=== PATIENT | male | born 1965 | race American Indian/Alaskan Native ===

== ENCOUNTER 2025-04-19 10:29 | Outpatient (AMB) | payer BC, SELFPAY ==
--- NOTE | 2025-04-19 10:36 | A.OFFVIS_ITS ---
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 The patient is a 60-year-old gentleman with a positive methacholine challenge consistent with asthma also with significant allergies here for evaluation. The patient states that he started developing worsening respiratory symptoms the last few years. He did have a methacholine challenge that was positive for hyperreactive airways in a diagnosis of asthma. 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 He did have allergy testing demonstrating significant allergens. The patient also is currently being seen by an leather roller and is currently on allergy shots. The patient also was started on biologics including Nucala. The Nucala was not effective and therefore the patient recently was placed on Dupixent. On further questioning he does have significant nasal congestion. Has a hard time breathing through his nose. He has been using fluticasone nasal spray more recently got a new nasal spray. It does affect his sleep. The patient does have significant snoring does have an elevated Mclaughlin score of 11/24. He was already diagnosed with sleep apnea in the past but could not tolerate PAP therapy therefore he is no longer using it. The patient also had a CT scan of the chest which I personally reviewed done at [facility] in 2022. The patient had multiple pulmonary nodules but 1 nodules 5 mm in size in the right hemithorax. Has not been visualized sense. The patient needs a repeat CAT scan to assess this nodule at this time. If the nodule has not changed in that period of time 2 years then no additional imaging studies at least serially are warranted. Will go ahead and maximize his respiratory therapy by switching over to Breztri from Advair. The patient will continue with the biologic therapy and also immunotherapy. He will continue his allergy therapy. We also talked about nasal rinsing to try to help him with the nasal passages while he uses the fluticasone nasal spray. The patient will follow-up in 2-3 months. If he has any issues prior to this he will call for an earlier evaluation. [facility] Medical History (Updated 04/19/25 @ 12:55 by Praveen Burch MD) Dyspnea Chronic allergic rhinitis Asthma Pulmonary nodule Social History (Updated 04/19/25 @ 10:40 by Faustina Ambrose CMA) Patient Tobacco Use Status: Never used Tobacco Review of Systems Const Reports daytime sleepiness, Reports snoring and Reports stops breathing during sleep Eyes Reports no additional complaints ENT Reports nasal congestion, Reports nasal discharge and Reports nasal obstruction Card Reports dyspnea on exertion Resp Reports cough, Reports dyspnea on exertion, Reports snoring and Reports wheezing GI Reports no additional complaints Musc Reports no additional complaints Skin/Breast Reports rash Neuro Reports no additional complaints Endo Reports no additional complaints Yazan/Lymph Reports no additional complaints Aller/Immun Reports wheezing Physical Exam Vital Signs: Last Vital Signs Pulse 94 04/19/25 10:38 BP 130/90 H 04/19/25 10:38 Pulse Ox 96 04/19/25 10:38 Oxygen Delivery Method Room Air 04/19/25 10:38 BMI result Body Mass Index 34.9 Const General: comfortable HEENT General nose exam: Abnormal mucous membranes and turbinates present boggy Neck Neck: Yes supple Chest Chest palpation & inspection: normal inspection of the chest Resp Effort & Inspection: normal respiratory effort Auscultation: diminished lung sounds Cardio Heart sounds: S1 normal heart sound present and S2 normal heart sound present GI Palpation (GI): Soft to palpation Skin General skin exam: no rashes or lesions noted Extrem General: Yes no clubbing, cyanosis or edema Assessment & Plan Assessment & Plan (1) Asthma: Code(s): J45.909 - Unspecified asthma, uncomplicated Category: Medical Qualifiers: Asthma severity: moderate Asthma persistence: persistent Asthma complication type: uncomplicated Qualified Code(s): J45.40 - Moderate persistent asthma, uncomplicated (2) Pulmonary nodule: Code(s): R91.1 - Solitary pulmonary nodule Category: Medical (3) Chronic allergic rhinitis: Code(s): J30.9 - Allergic rhinitis, unspecified Category: Medical (4) Dyspnea: Code(s): R06.00 - Dyspnea, unspecified Category: Medical Qualifiers: Dyspnea type: dyspnea on exertion Qualified Code(s): R06.09 - Other forms of dyspnea Plan Stop Advair HFA Start Breztri BID BANDAR as needed continue Dupixent nasal pray start Nasal rinsing with distilled water and packages CT chest should wear a mask (N95) when working with organic and inorganic dust F/U 2-3 months Orders: Orders CT chest wo IV con Today R91.1 - Solitary pulmonary nodule Medications: New jxptzrvmbf-tcxcvnhe-mafljuylho 160-9-4.8 mcg/actuation (Breztri Aerosphere) 2 inhalations inhalation BID 10.7 grams 0RF Coding Level of Care Code New Pt Level 4 (28223) Diagnoses Moderate persistent asthma without complication J45.40 Asthma severity: moderate Asthma persistence: persistent Asthma complication type: uncomplicated Pulmonary nodule R91.1 Chronic allergic rhinitis J30.9 Dyspnea on exertion R06.09 Dyspnea type: dyspnea on exertion Time Spent (min) 40
[2025-04-19 10:38] VITALS: BP 130/90; PULSE 94; O2SAT 96; BMI 34.9
--- OUTSIDE RECORDS SUMMARY | 2025-04-19 11:39 | XMS_ITS | Encounter Summary ---
Author Organization [facility] Address [address] [place] [address] Care Team Providers Care Plunger Scoop Operator Name Role Phone Joanie Conley MD Primary Care Provider Unavailab Pritesh Fang MD Unavailable Encounter Details Date Type Department Care Team Description 12/02/2023 Hospital Medical Records [address] [place] [address] Andre Vasques MD [address] [place] [address] [address] [place] [address] Social History Tobacco Use Types Packs/Day Years Used Date Smoking Tobacco: Never Smokeless Tobacco: Never Alcohol Use Standard Drinks/Week Comments Yes 0 (1 standard drink = 0.6 oz pur e alcohol) social drinker Sex Assigned at Date Recorded Not on file Job Start Date Occupation Industry Not on file Not on file Not on file documented as of this encounter Plan of Treatment Not on file documented as of this encounter Visit Diagnoses Not on filedocumented in this encounter Care Teams Plunger Scoop Operator Relationship Specialty Start Date End Date Joanie Conley MD PCP - General Internal Medicine 08/24/21 Pritesh Benton MD Catalytic Converter Operator Helper Cardiovascular Disease 09/26/21 documented as of this encounter
--- OUTSIDE RECORDS SUMMARY | 2025-04-19 11:39 | XMS_ITS | Clinical Summary ---
Author Organization [facility] Address [address] [place] [address] Phone Care Team Providers Care Dress Finisher Name Role Phone Joanie Conley MD Primary Care Provider [phone] Allergies No known active allergies Medications chlorthalidone (HYGROTON) 25 mg tablet Daily 0 Active mometasone (NASONEX) 50 mcg/actuation nasal spray 8 Active montelukast (SINGULAIR) 10 mg tablet Take 1 tablet (10 mg total) by mouth at bedtime. Active atorvastatin (LIPITOR) 80 mg tablet Daily Active lansoprazole (PREVACID) [address] capsule Take 1 capsule (30 mg total) by mouth 1 (one) time each day. Do not crush or chew. 90 each 3 5 10/31/19 26 Active Nucala 100 mg/mL injection syringe Inject 1 mL (100 mg total) under the skin 1 (one) time. 5 Active Flonase Allergy Relief 50 mcg/actuation nasal spray Administer 1 spray into each nostril 1 (one) time each day. Active albuterol HFA (PROAIR HFA ; PROVENTIL HFA ; VENTOLIN HFA) 90 mcg/actuation inhaler Inhale 2 puffs by mouth every 4 (four) hours. 5 Active acetaminophen (TYLENOL) 500 mg tablet Take 2 tablets (1,000 mg total) by mouth every 8 (eight) hours. 30 tablet 5 Active oxyCODONE (ROXICODONE) 5 mg immediate release tablet Take 1 tablet (5 mg total) by mouth every 6 (six) hours if needed for severe pain. Max Daily Amount: 20 mg 6 tablet 5 Active docusate sodium (COLACE) 100 mg capsule Take 1 capsule (100 mg total) by mouth 1 (one) time each day. 7 each 5 Active Active Problems Problem Noted Date Diagnosed Date History of cholecystectomy 03/09/2025 Gastric lesion 03/09/2025 History of Jayne fundoplication 11/18/2024 Epigastric pain 11/18/2024 GERD (gastroesophageal reflux disease) 0 Overview (06/10/2024): 2014 Jayne Fundoplication Hypertension 05/12/2020 Nephrolithiasis 05/12/2020 Odynophagia 05/12/2020 Overview (06/10/2024): 2014 Jayne Fundoplication FARHAN on CPAP 05/12/2020 Total knee replacement status 05/12/2020 Overview (06/10/2024): right Post-nasal drip 01/14/2018 Asthma 07/05/2017 Dyspnea on exertion 07/05/2017 Hyperlipidemia 05/13/2017 Diverticulosis of intestine 10/05/2016 Internal hemorrhoids 10/05/2016 Hypothyroidism 08/25/2015 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 Insomnia 09/10/2014 Resolved Problems Problem Noted Date Diagnosed Date Resolved Date Calculus of gallbladder with out cholecystitis without obstruction 02/10/2025 03/02/2025 Encounters Date Type Department Care Team Description 03/15/2025 11:00 AM EDT Office Visit General Surgery - [place] 175 [facility] [address] [place] [address] Zain Walsh MD History of laparoscopic cholecystectomy (Primary Dx); Gastric mass 03/09/2025 10:20 AM EDT Office Visit Gastroenterology - [address] 175 [facility] [address] [place] [address] Andre Vasques MD Epigastric pain (Primary Dx); History of Jayne fundoplication; Gastric lesion 03/02/2025 7:30 AM EDT - 03/02/2025 9:30 AM EDT Surgery [facility] OR [address] [place] [phone] Zain Walsh MD LAPAROSCOPIC CHOLECYSTECTOMY [84122 (CPT )] 03/02/2025 7:29 AM EDT Anesthesia Event [facility] OR [address] [place] [phone] Edy Carmen MD Couture, Alison, CRNA 03/02/2025 5:55 AM EDT - 03/02/2025 12:10 PM EDT Hospital Encounter [facility] OR [address] [place] [phone] Zain Walsh MD Calculus of gallbladder without cholecystitis without obstruction Discharge Disposition: Home or Self Care 02/11/2025 Telephone General Surgery - [place] [address] [phone] Zain Walsh MD Prior Authorization (03/02/25 Dr. Zain Walsh) 02/10/2025 10:15 AM EDT Consult General Surgery [facility] [address] [phone] Zain Walsh MD Calculus of gallbladder without cholecystitis without obstruction (Primary Dx) from Last 3 Months Immunizations Name Administration Dates Next Due Influenza trivalent, 0.5mL, preservative free (Fluarix; FluLaval; Fluzone) ages 6mo and older (Afluria) 3 years and older 10/18/2016 Pneumococcal polysaccharide 23 valent (Pneumovax 23) 2yo and older 10/18/2016 Tdap Tetanus diptheria acell ular pertussis (Boostrix; Adacel) 7yo and older 11/14/2017 Surgical History Surgery Date Site/Laterality Comments OTHER SURGICAL HISTORY 04/07/2015 PROCEDURE: DE LAPS SURG ESOPG/GSTR FUNDOPLASTY; COMMENT: jayne fundoplication HERNIA REPAIR 01/21/2018 Left PROCEDURE: HISTORICAL HERNIA REPAIR/ING; COMMENT: with mesh WRIST MASS EXCISION 2015 Right PROCEDURE: DE EXCISION GANGLION WRIST DORSAL/VOLAR PRIMARY CARPAL TUNNEL RELEASE 2007 Bilateral PROCEDURE: HISTORICAL CARPAL TUNNEL REL COLONOSCOPY 09/18/2016 PROCEDURE: HISTORICAL COLONOSCOPY; COMMENT: Internal hemorrhoids, diverticulosis, Repeat 10 yrs TOTAL KNEE ARTHROPLASTY Right PROCEDURE: HISTORICAL TOTAL KNEE REPLACE UPPER GASTROINTESTINAL ENDOSCOPY 01/27/2016 PROCEDURE: DE UPPER GI ENDOSCOPY PERFORMED; COMMENT: H pylori, chronic gastritis LIPOMA RESECTION 09/18/2021 Right PROCEDURE: SKIN TISSUE EXCISION(LIPOMA); COMMENT: excision right forehead lipoma - Dr. Zain Walsh CHOLECYSTECTOMY Medical History Medical History Date Comments Odynophagia 05/12/2020 DX:Odynophagia; COMMENT: 2014 Jayne Fundoplication GERD (gastroesophageal reflux disease) 05/12/2020 DX:GERD (gastroesophageal reflux disease); COMMENT: 2014 Jayne Fundoplication FARHAN on CPAP 05/12/2020 DX:FARHAN on CPAP Nephrolithiasis 05/12/2020 DX:Nephrolithias is Hypertension 05/12/2020 DX:Hypertension Total knee replacement status 05/12/2020 DX :Total knee replacement status; COMMENT: right History of Helicobacter pylo ri infection 07/03/2017 DX:History of Helicobacter p ylori infection; COMMENT: 2015 Asthma 07/05/2017 DX:Asthma Diverticulosis of intestine 10/05/2016 DX:D iverticulosis of intestine Hyperlipidemia 05/13/2017 DX:Hyperlipidemi a Insomnia 09/10/2014 DX:Insomnia Internal hemorrhoids 10/05/2016 DX:Internal hemorrhoids 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 DX:Keloid scar Post-nasal drip 01/14/2018 DX:Post-nasal dr ip Hypothyroidism 08/25/2015 DX:Hypothyroidis m Family History Medical History Relation Name Comments Heart attack Father Heart attack Mother Relation Name Status Comments Father Mother Social History Tobacco Use Types Packs/Day Years Used Date Smoking Tobacco: Never Smokeless Tobacco: Never Alcohol Use Standard Drinks/Week Comments Yes 0 (1 standard drink = 0.6 oz pur e alcohol) Interpersonal Safety Answer Date Record ed Physical Abuse 03/02/2025 Verbal Abuse 03/02/2025 Sex and Gender Information Value Date Recorded Sex Assigned at Male 11/18/2024 11:53 AM EDT Legal Sex Male 8:25 AM EST Gender Identity Male 11/18/2024 11:53 AM EDT Sexual Orientation Straight 11/18/2024 11 :53 AM EDT Obstetrics History Last Filed Vital Signs Vital Sign Reading Time Taken Comments Blood Pressure 142/88 03/15/2025 10:31 AM EDT Pulse 89 03/15/2025 10:31 AM EDT Temperature 36.6 C (97.8 F) 03/15/2025 10:31 AM EDT Respiratory Rate 18 03/02/2025 11:26 AM EDT Oxygen Saturation 94% 03/02/2025 11:26 AM EDT Inhaled Oxygen Concentration - - Weight 101 kg (221 lb 12.8 oz) 03/15/2025 10:31 AM EDT Height 170.2 cm (5' 7 ) 03/15/2025 10:31 AM EDT Body Mass Index 34.74 03/15/2025 10:31 AM EDT Plan of Treatment Upcoming Encounters Date Type Department Care Team (Late st Contact Info) Description 06/03/2025 9:30 AM EDT Appointment [facility] Endoscopy [address] [place] [phone] Andre Vasques MD 175 [facility] [address] [place] [address] 06/14/2025 10:30 AM EDT Office Visit General Surgery - [place] 175 [facility] [address] [place] [phone] Zain Walsh MD 175 [facility] [address] [place] [address] Health Maintenance Due Date Last Done Comments Zoster Vaccines (1 of 2) 2015 Pneumococcal Vaccine: 50+ Years (2 of 2 - PCV) 10/18/2017 10/18/2016 HIV Screening 08/04/2022 Hepatitis C Screening 08/04/2022 Hypertension/CHF/CAD Annual BMP Blood Test 08/04/2022 09/12/2018 Social Influencers of Health Screening 08/04/2022 Cholesterol Screening (Lipid Panel) 05/20/2023 05/20/2018 COVID-19 Vaccine (3 - 2023-2 5 season) 2024 02/15/2021, 01/25/2021 Depression Screening 08/26/2024 RSV Immunization Adult Patients (1 - Risk 60-74 years 1-dose series) 2025 Influenza Vaccine (#1) 2025 9, 10/18/2016 DTaP,Tdap,and Td Vaccines (3 - Td or Tdap) 03/06/2031 03/06/2021, 11/14/2017 Colorectal Cancer Screening: Colonoscopy 10/21/2034 10/21/2024, 09/28/2016 HIB Vaccines Aged Out No longer eligi ble based on patient's age to complete this topic HPV Vaccines Aged Out No longer eligi ble based on patient's age to complete this topic Hepatitis A Vaccines Aged Out No long er eligible based on patient's age to complete this topic Hepatitis B Vaccines Aged Out No long er eligible based on patient's age to complete this topic IPV Vaccines Aged Out No longer eligi ble based on patient's age to complete this topic MMR Vaccines Aged Out No longer eligi ble based on patient's age to complete this topic Meningococcal ACWY Vaccine Aged Out N o longer eligible based on patient's age to complete this topic Meningococcal B Vaccine Aged Out No l onger eligible based on patient's age to complete this topic RSV Immunization Patients Under 20 months Aged Out No longer eligible b ased on patient's age to complete this topic Varicella Vaccines Aged Out No longer eligible based on patient's age to complete this topic Procedures Procedure Name Priority Date/Time Associated Diagnosis Comments TISSUE EXAM Routine 03/02/2025 8:08 AM EDT Calculus of gallbladder without cholecystitis without obstruction TH AN ENDOTRACHEAL(NO CHARGE) Routine 03/02/2025 7:45 AM EDT DE LAPAROSCOPY SURGICAL CHOLECYSTECTOMY 03/02/2025 7:28 AM EDT Calculus of gallbladder without cholecystitis without obstruction Case Notes PA ASSIST Special Needs Laparoscopic Cholecystectomy -- Asking 90 Minutes for this caseTIME CHANGE VIA PHONE Brandt/ADAM WILLINGHAM 03/01 PROCEDURAL ECG Routine 02/23/2025 9:21 AM EDT Calculus of gallbladder without cholecystitis without obstruction EXTERNAL COLONOSCOPY REPORT Routine 10/21/2024 2:48 PM EST ANNUAL BMP BLOOD TEST Routine 09/12/2018 LIPID PANEL Routine 05/20/2018 from Last 3 Months or Most Recently Relevant to Health Maintenance Results * Tissue exam (03/02/2025 8:08 AM EDT) Final Diagnosis Gallbladder, cholecystectomy: - Chronic cholecystitis. - Cholelithiasis. 03/04/2025 1:32 PM EDT [facility] Gross Description A. Gallbladder, : Labeled gallbladder . Received in formalin is a 6.6 cm in length intact curry gallbladder, including a clipped segment of the cystic duct. The duct has a diameter of 0.6 cm at the margin. A periductal lymph node is absent. The serosa is smooth with an attached layer of adipose and the adventitia is cauterized. The maximal gallbladder circumference is 5.5 cm. The lumen contains brown-green viscid bile and yellow calculi up to 1.5 cm. The mucosa is velvety and yellow-stippled. The wall (muscularis) thickness averages less than 0.1 cm. The serosa is inked marlen and the adventitia is inked green. The duct margin is inked red. Insurance Associate sections are submitted in one cassette including gallbladder (fundus, body and neck), duct margin (inked red), and cross-section adjacent to duct margin (black), five pieces. LAURO/TSRavi 03/04/2025 1:32 PM EDT [facility] Disclaimer Unless otherwise specified, all tissue is 10% NB formalin fixed and paraffin embedded. 03/04/2025 1:32 PM EDT [facility] Tissue Gallbladder structure / Unknown 03/02/2025 8:08 AM EDT 03/02/2025 9:56 AM EDT us Zain Walsh MD LAB PATHOLOGY ORDERABLES Final Result [facility] [address] [place] [address], * TH AN ENDOTRACHEAL(NO CHARGE) (03/02/2025 7:45 AM EDT) Narrative Couture, Jackie, DISABILITY REPRESENTATIVE - 03/02/2025 7:45 AM EDT Jackie Caldwell CRNA 03/02/2025 7:45 AM General Information and Staff Patient location during procedure: OR Resident/DISABILITY REPRESENTATIVE: Jackie Caldwell CRNA Performed: resident/DISABILITY REPRESENTATIVE/CAA Performed by: Jackie Caldwell CRNA Authorized by: Edy Carmen MD Intubation Airway not difficult Urgency: elective Final Airway Details Successful airway: ETT Cuffed: yes Successful intubation technique: direct laryngoscopy Facilitating devices/methods: intubating stylet Blade: Eugenio Blade size: #3 ETT size (mm): 7.5 Cormack-Lehane Classification: grade I - full view of glottis Placement verified by: chest auscultation and capnometry Measured from: lips ETT to lips (cm): 23 Number of attempts at approach: 1Final airway type: endotracheal airway Indications and Patient Condition Indications for airway management: anesthesia and airway protection Spontaneous ventilation: present Sedation level: Yes Preoxygenated: yes Soft Tissue Damage: No Dentition Unchanged: Yes Patient position: sniffing MILS maintained throughout Mask difficulty assessment: 1 - vent by mask us Edy Carmen MD ANESTHESIA ORDERABLES Final Re sult * ECG 12 lead - Procedural (No Charge) (02/23/2025 9:21 AM EDT) Ventricular Rate ECG 84 BPM GEMUSE Atrial Rate 84 BPM GEMUSE P-R Interval 144 ms GEMUSE QRS Duration 92 ms GEMUSE Q-T Interval 390 ms GEMUSE QTc 460 ms GEMUSE P Wave Sherman 71 degrees GEMUSE R Sherman -12 degrees GEMUSE T Sherman 69 degrees GEMUSE ECG Interpretation Normal sinus rhythm Nonspecific T wave abnormality Abnormal ECG When compared with ECG of 12-SEP-2018 13:19, Nonspecific T wave abnormality now evident in Lateral leads Confirmed by MD Andrea, Crescent ([id number]) on 02/23/2025 5:09:36 PM GEMUSE 02/23/2025 9:21 AM EDT 02/23/2025 5:09 PM EDT us Zain Walsh MD ECG ORDERABLES Final Result [facility] * External Colonoscopy Report (10/21/2024 2:48 PM EST) Anatomical Region Laterality Modality Endoscopy Historical Provider GI~PROCEDURE ORDERABLES F inal Result * Annual BMP Blood Test (09/12/2018) Annual BMP Blood Test abstracted Historical Provider HEALTH MAINTENANCE Final Result * (ABNORMAL) Lipid panel (05/20/2018) LDL/HDL Ratio 4 0 - 4 Triglycerides 131 0 - 150 mg/dL Cholesterol 192 0 - 200 mg/dL HDL 49 >=40 mg/dL LDL Cholesterol 117(A) 0 - 100 mg/dL Blood Venous blood specimen / Unknown Historical Provider LAB BLOOD ORDERABLES Valerie l Result from Last 3 Months or Most Recently Relevant to Health Maintenance Insurance [facility] MEDICAID - [place] Advance Directives * Full Code - Default (Latest Code Status on File) Date Activated Date Inactivated Comments 03/02/2025 6:11 AM 03/02/2025 2:15 PM This is order is used when code status has not been discussed with the patient, or code status is otherwise unknown/unconfirmed To update the patient's code status, place a code status order. Do not modify or discontinue any currently active code status orders. Care Teams Dress Finisher Relationship Specialty Start Date End Date Joanie Conley MD [address] [place] [phone] PCP - General Internal Medicine 08/24/21
== END 2025-04-19 11:10 | disposition home or self-care (01) ==
LOC: HO.HPS 10:31
PROVIDERS: PCP Internal Medicine; Visit Provider Hospitalist
DX: J45.40 Moderate persistent asthma, uncomplicated (principal); R91.1 Solitary pulmonary nodule; J30.9 Allergic rhinitis, unspecified; R06.09 Other forms of dyspnea
CPT/HCPCS: 99204

== ENCOUNTER 2025-06-05 07:49 | Outpatient (REF) | payer BC, SELFPAY ==
--- OUTSIDE RECORDS SUMMARY | 2025-06-03 08:22 | XMS_ITS | Encounter Summary ---
Author Organization [facility] Address [address] [place] [address] Care Team Providers Care Plant Cytologist Name Role Phone Joanie Conley MD Primary Care Provider [phone] Reason for Referral * Hospital - Outpatient (Routine) - Authorized Specialty Diagnoses / Procedures Referred By Ashley garcia Referred To Contact Gastroenterology Diagnoses Epigastric pain Gastroesophageal reflux disease without esophagitis History of Jayne fundoplication Procedures EGD Anesthesia - MAC; [facility] ENDOSCOPY Andre Vasques MD [address] [address] Phone: tel: fax: [facility] Endoscopy [address] [place] [address] Phone: tel: Referral ID Status Reason Start Date Expiration Date V isits Requested Visits Authorized [id number] Authorized 03/09/2025 03/09/2026 1 1 Reason for Visit * Hospital - Outpatient (Routine) - Authorized Specialty Diagnoses / Procedures Referred By Ashley garcia Referred To Contact Gastroenterology Diagnoses Epigastric pain Gastroesophageal reflux disease without esophagitis History of Jayne fundoplication Procedures EGD Anesthesia - MAC; [facility] ENDOSCOPY Andre Vasques MD [address] [address] Phone: tel: fax: [facility] Endoscopy [address] [place] [address] Phone: tel: Referral ID Status Reason Start Date Expiration Date V isits Requested Visits Authorized [id number] Authorized 03/09/2025 03/09/2026 1 1 Encounter Details Date Type Department Care Team (Late st Contact Info) Description 06/03/2025 8:22 AM EDT Hospital Encounter [facility] Endoscopy [address] [place] [phone] Andre Vasques MD 175 [facility] [address] [address] [place] [address] Katya Helton CRNA [address] [place] [address] Epigastric pain; Gastroesophageal reflux disease without esophagitis; History of Jayne fundoplication Social History Tobacco Use Types Packs/Day Years Used Date Smoking Tobacco: Never Smokeless Tobacco: Never Alcohol Use Standard Drinks/Week Comments Yes 0 (1 standard drink = 0.6 oz pur e alcohol) Interpersonal Safety Answer Date Record ed Physical Abuse Unrecognized value 03/02/2025 Verbal Abuse Unrecognized value 03/02/2025 Sex and Gender Information Value Date Recorded Sex Assigned at Male 11/18/2024 11:53 AM EDT Legal Sex Male 8:25 AM EST Gender Identity Male 11/18/2024 11:53 AM EDT Sexual Orientation Straight 11/18/2024 11 :53 AM EDT documented as of this encounter Last Filed Vital Signs Vital Sign Reading Time Taken Comments Blood Pressure 140/95 06/03/2025 10:55 AM EDT Pulse 86 06/03/2025 10:55 AM EDT Temperature 36.2 C (97.1 F) 06/03/2025 9:27 AM EDT Respiratory Rate 16 06/03/2025 10:55 AM EDT Oxygen Saturation 98% 06/03/2025 10:55 AM EDT Inhaled Oxygen Concentration - - Weight 99.8 kg (220 lb) 06/03/2025 9:27 AM EDT Height 170.2 cm (5' 7 ) 06/03/2025 9:27 AM EDT Body Mass Index 34.46 06/03/2025 9:27 AM EDT documented in this encounter H&P Notes * Andre Vasques MD - 06/03/2025 9:30 AM EDT Pre-Op Diagnosis: EP GERD Proposed Procedure: EGD Performing Surgeon/MD/Endoscopist: Andre Vasques MD Medical/History: Medical History[1]Surgical History[2] Medications/Allergies: Prior to Admission medications Medication Sig Start Date End Date Taking? Authorizing Provider chlorthalidone (HYGROTON) 25 mg tablet Daily 04/26/20 Yes Historical Provider, acetaminophen (TYLENOL) 500 mg tablet Take 2 tablets (1,000 mg total) by mouth every 8 (eight) hours. 03/02/25 LISA Bourgeois albuterol HFA (PROAIR HFA ; PROVENTIL HFA ; VENTOLIN HFA) 90 mcg/actuation inhaler Inhale 2 puffs by mouth every 4 (four) hours. 10/30/24 Historical Provider, atorvastatin (LIPITOR) 80 mg tablet Daily Historical Provider, docusate sodium (COLACE) 100 mg capsule Take 1 capsule (100 mg total) by mouth 1 (one) time each day. Patient not taking: Reported on 06/03/2025 03/02/25 LISA Bourgeois Flonase Allergy Relief 50 mcg/actuation nasal spray Administer 1 spray into each nostril 1 (one) time each day. Historical Provider, lansoprazole (PREVACID) [address] capsule Take 1 capsule (30 mg total) by mouth 1 (one) time each day. Do not crush or chew. 10/30/24 10/30/25 Dionna Ovalle NP mometasone (NASONEX) 50 mcg/actuation nasal spray 01/13/18 Historical Provider, montelukast (SINGULAIR) 10 mg tablet Take 1 tablet (10 mg total) by mouth at bedtime. Historical Provider, Nucala 100 mg/mL injection syringe Inject 1 mL (100 mg total) under the skin 1 (one) time. 01/19/25 Historical Provider, oxyCODONE (ROXICODONE) 5 mg immediate release tablet Take 1 tablet (5 mg total) by mouth every 6 (six) hours if needed for severe pain. Max Daily Amount: 20 mg 03/02/25 LISA Bourgeois Patient Age:60 y.o. Vitals: Vitals: 06/03/25 0927 BP: (!) 157/86 Pulse: 82 Resp: 16 Temp: 36.2 ??C (97.1 ??F) SpO2: 98% Physical Exam: Mental Status: Clear HEENT: WNL Heart: WNL Lungs: WNL Abdomen: WNL Extremities: WNL Neuro: WNL Labs: Imaging: Diagnosis/Plan: EGD [1] Past Medical History: Diagnosis Date Asthma 07/05/2017 DX:Asthma Diverticulosis of intestine 10/05/2016 DX:Diverticulosis of intestine GERD (gastroesophageal reflux disease) 05/12/2020 DX:GERD (gastroesophageal reflux disease); COMMENT: 2014 Jayne Fundoplication History of Helicobacter pylori infection 07/03/2017 DX:History of Helicobacter pylori infection; COMMENT: 2015 Hyperlipidemia 05/13/2017 DX:Hyperlipidemia Hypertension 05/12/2020 DX:Hypertension Hypothyroidism 08/25/2015 DX:Hypothyroidism Insomnia 09/10/2014 DX:Insomnia Internal hemorrhoids 10/05/2016 DX:Internal hemorrhoids 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 DX:Keloid scar Nephrolithiasis 05/12/2020 DX:Nephrolithiasis Odynophagia 05/12/2020 DX:Odynophagia; COMMENT: 2014 Jayne Fundoplication FARHAN on CPAP 05/12/2020 DX:FARHAN on CPAP Post-nasal drip 01/14/2018 DX:Post-nasal drip Total knee replacement status 05/12/2020 DX:Total knee replacement status; COMMENT: right [2] Past Surgical History: Procedure Laterality Date CARPAL TUNNEL RELEASE Bilateral 2007 PROCEDURE: HISTORICAL CARPAL TUNNEL REL CHOLECYSTECTOMY COLONOSCOPY 09/18/2016 PROCEDURE: HISTORICAL COLONOSCOPY; COMMENT: Internal hemorrhoids, diverticulosis, Repeat 10 yrs HERNIA REPAIR Left 01/21/2018 PROCEDURE: HISTORICAL HERNIA REPAIR/ING; COMMENT: with mesh LIPOMA RESECTION Right 09/18/2021 PROCEDURE: SKIN TISSUE EXCISION(LIPOMA); COMMENT: excision right forehead lipoma - Dr. Zain Walsh OTHER SURGICAL HISTORY 04/07/2015 PROCEDURE: [place] LAPS SURG ESOPG/GSTR FUNDOPLASTY; COMMENT: jayne fundoplication TOTAL KNEE ARTHROPLASTY Right PROCEDURE: HISTORICAL TOTAL KNEE REPLACE UPPER GASTROINTESTINAL ENDOSCOPY 01/27/2016 PROCEDURE: [place] UPPER GI ENDOSCOPY PERFORMED; COMMENT: H pylori, chronic gastritis WRIST MASS EXCISION Right 2016 PROCEDURE: [place] EXCISION GANGLION WRIST DORSAL/VOLAR PRIMARY documented in this encounter Procedure Notes * Geraldo Lynn RN - 06/03/2025 9:30 AM EDT Pt alert and oriented Tolerating po intake well Md bedside to speak with pt Call rousseau bedside All belongings returned to pt documented in this encounter Plan of Treatment Upcoming Encounters Date Type Department Care Team (Late st Contact Info) Description 06/14/2025 10:30 AM EDT Office Visit General Surgery - [address] [place] [address] Zain Walsh MD [address] [place] [phone] documented as of this encounter Procedures Procedure Name Priority Date/Time Associated Diagnosis Comments EGD Routine 06/03/2025 10:34 AM EDT Epigastric pain Gastroesophageal reflux disease without esophagitis History of Jayne fundoplication TISSUE EXAM Routine 06/03/2025 10:24 AM EDT Epigastric pain Gastroesophageal reflux disease without esophagitis History of Jayne fundoplication documented in this encounter Results * EGD Anesthesia - MAC; [facility] ENDOSCOPY (06/03/2025 10:34 AM EDT) Anatomical Region Laterality Modality Other 06/03/2025 10:1 4 AM EDT Impressions 06/03/2025 10:29 AM EDT - Biopsies were taken with a cold forceps for histology in the gastric body. Recommendation: - Await pathology results. - Observe patient's clinical course. Narrative 06/03/2025 10:29 AM EDT [facility] GI Patient Name: Ryan Cardona Procedure Date: 06/03/2025 10:14 AM Date of : 1965 Age: 60 Gender: Male Note Status: Finalized Attending MD: Andre Vasques MD, Procedure Date No Time: 06/03/2025 Procedure: Upper GI endoscopy Indications: Epigastric abdominal pain, Heartburn Providers: Andre Vasques MD Referring MD: Andre Vasques MD Medicines: Propofol per Anesthesia Complications: No immediate complications. Estimated Blood Loss: Estimated blood loss was minimal. Procedure: Pre-Anesthesia Assessment: - ASA Grade Assessment: II - A patient with mild systemic disease. After obtaining informed consent, the endoscope was passed under direct vision. Throughout the procedure, the patient's blood pressure, pulse, and oxygen saturations were monitored continuously.The Olympus Gastroscope was introduced through the mouth, and advanced to the second part of duodenum. The upper GI endoscopy was accomplished without difficulty. The patient tolerated the procedure well. Findings: Biopsies were taken with a cold forceps in the gastric body for histology. Estimated blood loss was minimal. Procedure Code(s): --- Professional --- 29125, Esophagogastroduodenoscopy, flexible, transoral; with biopsy, single or multiple Diagnosis Code(s): --- Professional --- R10.13, Epigastric pain R12, Heartburn CPT copyright 2020 [employer]. All rights reserved. The codes documented in this report are preliminary and upon auger operator review may be revised to meet current compliance requirements. Andre Vasques MD 06/03/2025 10:29:42 AM This report has been signed electronically.Andre Vasques MD Number of Addenda: 0 Note Initiated On: 06/03/2025 10:14 AM Scope In: Scope Out: Endoscopy Department at [facility] - [address] [place] [phone] Procedure Note Andre Vasques MD - 06/03/2025 [facility] GI Patient Name: Ryan Cardona Procedure Date: 06/03/2025 10:14 AM Date of : 1965 Age: 60 Gender: Male Note Status: Finalized Attending MD: Andre Vasques MD, Procedure Date No Time: 06/03/2025 Procedure: Upper GI endoscopy Indications: Epigastric abdominal pain, Heartburn Providers: Andre Vasques MD Referring MD: Andre Vasques MD Medicines: Propofol per Anesthesia Complications: No immediate complications. Estimated Blood Loss: Estimated blood loss was minimal. Procedure: Pre-Anesthesia Assessment: - ASA Grade Assessment: II - A patient with mild systemic disease. After obtaining informed consent, the endoscope was passed under direct vision. Throughout theprocedure, the patient's blood pressure, pulse, and oxygen saturations were monitored continuously.The Olympus Gastroscope was introduced through the mouth, and advanced to the second part of duodenum. The upperGI endoscopy was accomplished without difficulty. The patient tolerated the procedure well. Findings: Biopsies were taken with a cold forceps in thegastric body for histology. Estimated blood loss wasminimal. Procedure Code(s): --- Professional --- 11268, Esophagogastroduodenoscopy, flexible, transoral; with biopsy, single or multiple Diagnosis Code(s): --- Professional --- R10.13, Epigastric pain R12, Heartburn CPT copyright 2020 [employer]. All rights reserved. The codes documented in this report are preliminary and upon auger operator reviewmay be revised to meet current compliance requirements. Andre Vasques MD 06/03/2025 10:29:42 AM This report has been signed electronically.Andre Vasques MD Number of Addenda: 0 Note Initiated On: 06/03/2025 10:14 AM Scope In: Scope Out: Endoscopy Department at [facility] - [address] [place] [phone] IMPRESSION: - Biopsies were taken with a cold forceps for histology in the gastric body. Recommendation: - Await pathology results. - Observe patient's clinical course. us Andre Vasques MD GI~PROCEDURE ORDERABLES Final Re sult * Tissue exam (06/03/2025 10:24 AM EDT) Final Diagnosis A. Gastric, Body, biopsies: - Gastric oxyntic mucosa with no specific pathologic changes. - No Helicobacter pylori organisms are morphologically identified. 06/04/2025 9:43 AM EDT [facility] at 0943 EDT Gross Description A. Gastric, Body, biopsies: Labeled gastric body biopsy . Received in formalin are two irregular bhardwaj mucosal tissue fragments, each measuring approximately 0.5 cm in greatest dimension, which are wrapped in paper and submitted in toto in one cassette, two pieces, multiple levels on one slide. LES 06/04/2025 9:43 AM EDT [facility] Disclaimer Unless otherwise specified, all tissue is 10% NB formalin fixed and paraffin embedded. 06/04/2025 9:43 AM EDT [facility] Tissue Gastric corpus structure / Unknown 06/03/2025 10:24 AM EDT 06/03/2025 11:37 AM EDT Andre Vasques MD LAB PATHOLOGY ORDERABLES Final R esult [facility] [address] [place] [address], documented in this encounter Visit Diagnoses Diagnosis Epigastric pain Abdominal pain, epigastric Gastroesophageal reflux disease without esophagitis Esophageal reflux History of Jayne fundoplication documented in this encounter Care Teams Plant Cytologist Relationship Specialty Start Date End Date Joanie Conley MD [address] [place] [address] PCP - General Internal Medicine 08/24/21 documented as of this encounter
--- OUTSIDE RECORDS SUMMARY | 2025-06-03 10:16 | XMS_ITS | Encounter Summary ---
Author Organization [facility] Address [address] [place] [address] Care Team Providers Care Quick Mixer Operator Name Role Phone Joanie Conley MD Primary Care Provider [phone] Encounter Details Date Type Department Care Team (Late st Contact Info) Description 06/03/2025 10:16 AM EDT Anesthesia Event [facility] Endoscopy [address] [place] [phone] Edy Carmen MD [address] [place] [phone] Katya Helton, DYLAN [address] [place] [address] Anesthesia Record Procedure Summary Procedure Name Responsible Anesthesiologist Anesthesia Start Time Anesthesia Stop Time EGD Edy Carmen MD 06/03/25 1016 06/03/25 1042 Events Date Time Event Comment 06/03/2025 0932 1016 An Start 1016 An Start Data The patient wa s reevaluated immediately before moderate or deep sedation use and before anesthesia induction. 1018 In Room 1020 Anesthesia Ready 1034 an stop data 1034 Out of Room 1042 Handoff to RN I completed my handoff to the receiving nurse during which we: 1. Identified the patient 2. Identified the responsible provider 3. Reviewed the pertinent medical history 4. Discussed the surgical course 5. Reviewed intra-op anesthesia management and issues during anesthesia 6. Set expectations for post-procedure period 7. Allowed opportunity for questions and acknowledgement of understanding. 1042 An Stop Meds Name Total propofol (DIPRIVAN) injection 10 mg/mL 2 50 mg lidocaine PF (XYLOCAINE-MPF) local injec tion 2% 100 mg lactated Ringer's infusion 300 mL * Agents No agents on file. * Blood No blood administrations on file. Lines, Drains, and Airways Type Details Placement Removal Wound Incision; 03/02/25; Abdomen; Right, Mid 03/02/25 0000 by Irma Dia RN Wound Incision; 03/02/25; 0835; N; Umbilicus 03/02/25 0835 by Irma Dia RN Wound Incision; 03/02/25; 0835; N; Abdomen; Left, Upper 03/02/25 0835 by Irma Dia RN Wound Incision; 03/02/25; 0836; N; Abdomen; Right, Outer 03/02/25 0836 by Irma Dia RN Peripheral IV Placement Date: 05/20; Placement Time: 925; Catheter Size: 20 G; Orientation: Anterior, Distal, Right; Location: Forearm; Insertion Attempts: 1; Patient Tolerance: Tolerated well; Removal Date: 06/03/25; Removal Time: 1051 06/03/25 0926 by Ambika Navarrete RN 06/03/25 105 by Geraldo Lynn RN documented in this encounter Social History Tobacco Use Types Packs/Day Years [...] AM EDT documented as of this encounter Progress Notes * Katya Helton CRNA - 06/03/2025 10:42 AM EDT Patient: Ryan Evans Otalvaro Procedure Summary Date: 06/03/25 Room / Location: [facility] Endoscopy Anesthesia Start: 1016 Anesthesia Stop: 1042 Procedure: EGD Diagnosis: Epigastric pain Gastroesophageal reflux disease without esophagitis History of Jayne fundoplication (Epigastric abdominal pain) (Heartburn) Scheduled Providers: Andre Vasques MD; Katya Helton CRNA; Edy Carmen MD Responsible Provider: Edy Carmen MD Anesthesia Type: MAC ASA Status: 3 Anesthesia Plan: MAC Last Vitals: Vitals Value Taken Time BP 130/70 06/03/25 10:42 Temp 98 06/03/25 10:42 Pulse 95 06/03/25 10:42 Resp 18 06/03/25 10:42 SpO2 100 06/03/25 10:42 No data recorded Anesthesia Post Evaluation Patient location during evaluation: PACU Patient participation: complete - patient participated Level of consciousness: awake Pain score: 0 Pain management: adequate Airway patency: patent Anesthetic complications: no Cardiovascular status: acceptable Respiratory status: acceptable Hydration status: acceptable Nausea: No Vomiting: No There were no known notable events for this encounter. * Edy Carmen MD - 06/03/2025 9:31 AM EDT 60 y.o. male scheduled for [EGD [GI2]] Ht Readings from Last 1 Encounters: 06/03/25 1.702 m (67 ) Wt Readings from Last 1 Encounters: 06/03/25 99.8 kg (220 lb) Body mass index is 34.46 kg/m??. Medical History[1] Surgical History[2] Denies anesthesia complications Allergies[3] Medications Ordered Prior to Encounter[4] Current In-hospital Medications MEDSSCHEDULED[5] MEDSCONTINUOUS[6] MEDSPRN[7] Social History[8] Visit Vitals BP (!) 157/86 Pulse 82 Temp 36.2 ??C (97.1 ??F) (Temporal) Resp 16 Ht 1.702 m (67 ) Wt 99.8 kg (220 lb) SpO2 98% BMI 34.46 kg/m?? Smoking Status Never BSA 2.11 m?? Available cardiac studies reviewed: No results found. EKG No results found for this or any previous visit (from the past 4464 hours). ECHO No results found for this or any previous visit. CATH No results found for this or any previous visit. LABS: No results found for: WBC , HGB , HCT , MCV , PLT No results found for: GLUCOSE , CALCIUM , NA , K , CO2 , CL , BUN , CREATININE No results found for: INR , PROTIME No results found for: PTT Denies cardiac, pulm, neuro, hepatic or renal s/sx. Patient meets ASA guidelines for NPO status. > 4 mets without anginal symptoms. Relevant labs, vitals, imaging, cardiac and pulmonary studies as well as HPI, Meds, Allergies, ROS,PMH, PSH, SH, and FH reviewed. Relevant Problems Cardio (+) Dyspnea on exertion (+) Hypertension (+) Internal hemorrhoids Pulmonary (+) Asthma (+) Dyspnea on exertion (+) FARHAN on CPAP Endo (+) Hypothyroidism GI (+) GERD (gastroesophageal reflux disease) Clinical information reviewed: Tobacco Allergies Meds Med Hx Surg Hx Fam Hx Soc Hx Anesthesia Plan ASA 3 Anesthesia Plan: MAC Anesthesia Considerations MAC Anesthesia Risks Discussed dental injury, allergic reaction, serious complications and corneal abrasion Induction method: N/A Anesthetic plan and risks discussed with patient. Anesthesia Plan discussed with TECHNICAL ARCHITECT. Anesthesia Evaluation Patient summary reviewed and Nursing notes reviewed History of anesthetic complications Airway Mallampati: III Thyromental distance: >3 FB Neck ROM: fullnot intubatedno noted risk Dental Comment: Crowns Pulmonary breath sounds clear to auscultation (+) asthma, shortness of breath, sleep apnea Cardiovascular (+) hypertension Rhythm: regular Rate: normal Neuro/Psych Mental Status: alert and oriented GI/Hepatic/Renal (+) GERD, chronic renal disease Endo/Other (+) hypothyroidism Abdominal Abdomen: soft. Bowel sounds: normal. PONV RISK SCORE: 2 Vitals: 06/03/25 0927 BP: (!) 157/86 Pulse: 82 Resp: 16 Temp: 36.2 ??C (97.1 ??F) TempSrc: Temporal SpO2: 98% Weight: 99.8 kg (220 lb) Height: 1.702 m (67 ) SpO2 Readings from Last 1 Encounters: 06/03/25 98% No results found for: WBC , RBC , HGB , HCT , PLT , MCV Allergies[9] STOP BANG: No data recorded NPO Status: Time of Last Liquid: 0700 [1] Past Medical History: Diagnosis Date Asthma [...] Zain Walsh OTHER SURGICAL HISTORY 04/07/2015 PROCEDURE: [place] LAPS SURG ESOPG/GSTR FUNDOPLASTY; COMMENT: jayne fundoplication TOTAL KNEE ARTHROPLASTY Right PROCEDURE: HISTORICAL TOTAL KNEE REPLACE UPPER GASTROINTESTINAL ENDOSCOPY 01/27/2016 PROCEDURE: [place] UPPER GI ENDOSCOPY PERFORMED; COMMENT: H pylori, chronic gastritis WRIST MASS EXCISION Right 2016 PROCEDURE: [place] EXCISION GANGLION WRIST DORSAL/VOLAR PRIMARY [3] No Known Allergies [4] Current Outpatient Medications on File Prior to Encounter Medication Sig Dispense Refill chlorthalidone (HYGROTON) 25 mg tablet Daily acetaminophen (TYLENOL) 500 mg tablet Take 2 tablets (1,000 mg total) by mouth every 8 (eight) hours. 30 tablet 0 albuterol HFA (PROAIR HFA ; PROVENTIL HFA ; VENTOLIN HFA) 90 mcg/actuation inhaler Inhale 2 puffs by mouth every 4 (four) hours. atorvastatin (LIPITOR) 80 mg tablet Daily docusate sodium (COLACE) 100 mg capsule Take 1 capsule (100 mg total) by mouth 1 (one) time each day. (Patient not taking: Reported on 06/03/2025) 7 each 0 Flonase Allergy Relief 50 mcg/actuation nasal spray Administer 1 spray into each nostril 1 (one) time each day. lansoprazole (PREVACID) [address] capsule Take 1 capsule (30 mg total) by mouth 1 (one) time each day. Do not crush or chew. 90 each 3 mometasone (NASONEX) 50 mcg/actuation nasal spray montelukast (SINGULAIR) 10 mg tablet Take 1 tablet (10 mg total) by mouth at bedtime. Nucala 100 mg/mL injection syringe Inject 1 mL (100 mg total) under the skin 1 (one) time. oxyCODONE (ROXICODONE) 5 mg immediate release tablet Take 1 tablet (5 mg total) by mouth every 6 (six) hours if needed for severe pain. Max Daily Amount: 20 mg 6 tablet 0 No current facility-administered medications on file prior to encounter. [5] [6] [7] [8] Social History Tobacco Use Smoking status: Never Smokeless tobacco: Never Substance Use Topics Alcohol use: Yes Drug use: No [9] No Known Allergies documented in this encounter Plan of Treatment Upcoming Encounters Date Type Department Care Team (Late st Contact Info) Description 06/14/2025 10:30 AM EDT Office Visit General Surgery - [address] [place] [address] Zain Walsh MD [facility] [place] [address] documented as of this encounter Visit Diagnoses Not on filedocumented in this encounter Administered Medications Inactive Administered Medications - up to 3 most recent administrations Medication Order MAR Action Action Date Dose Rate Site lactated Ringer's infusion intravenous, Continuous PRN, Starting on Barby 06/03/25 at 1021, Anesthesia Intraprocedure New Bag 06/03/2025 10:21 AM EDT 125 mL/hr lidocaine (PF) (XYLOCAINE-MPF) 2 % injection injection, As needed, Starting on Barby 06/03/25 at 1024, Anesthesia Intraprocedure Given 06/03/2025 10:24 AM EDT 100 mg propofoL (DIPRIVAN) injection intravenous, As needed, Starting on Barby 06/03/25 at 1024, Anesthesia Intraprocedure Given 06/03/2025 10:26 AM EDT 100 mg Given 06/03/2025 10:24 AM EDT 150 mg documented in this encounter Care Teams Quick Mixer Operator Relationship Specialty Start Date End Date Joanie Conley MD [address] [place] [phone] PCP - General Internal Medicine 08/24/21 documented as of this encounter
--- OUTSIDE RECORDS SUMMARY | 2025-06-05 07:54 | XMS_ITS | Patient Health Record ---
Author Organization [facility] Address [address] [place] [address] Care Team Providers Care Guideman Name Role Phone VENKAT DEMARCO Primary Care Provider Mary Cantu Unavailable [phone] Allergies No Known Allergies Reason For Referral No Information Medications Medication SIG (Take, Route, Frequency, Duration) Notes Start Date End Date Status Advair HFA 115-21 MCG/ACT 2 puffs Inhala tion Twice a day; Duration: 30 days 11/14/2023 Active Pantoprazole Sodium 20 MG 1 tablet Orall y Once a day Active Montelukast Sodium 10 MG 1 tablet Orally Once a day Active Albuterol Sulfate (2.5 MG/3ML) 0.083% 3 mL as needed Inhalation every 6 hrs Active Chlorthalidone 25 MG 1 tablet in the mor apurva with food Orally; Duration: 90 days Active Losartan Potassium 50 MG 1 tablet Orally Once a day; Duration: 30 days Active Atorvastatin Calcium 40 MG TAKE 1 TABLET BY MOUTH EVERY DAY; Duration: 90 Active Azelastine HCl 0.1 % as directed Nasally DAILY; Duration: 30 days 08/10/2024 Active Flonase Allergy Relief 50 MCG/ACT 1 spray in each nostril Nasally Once a day; Duration: 30 days Active Tamsulosin HCl 0.4 MG 1 capsule Orally O nce a day; Duration: 90 days 05/21/2024 Active Social History Tobacco Use: Social History Observation Description Date Details (start date - stop date) Never Smoker NA - NA Tobacco Use/Smoking Question Answer Notes Are you a nonsmoker Problems Problem Type SNOMED Code ICD Code Onset Dates Problem Status W/U Status Risk Notes Problem Obesity due to excess calories (943725880) Other obesity due to excess calories (E66.09) Active confirmed Problem Mixed hyperlipidemia (041241307) Mixed hyperlipidemia (E78.2) Active confirmed Problem Essential hypertension (52674033) Essential (primary) hypertension (I10) Active confirmed Problem Mild intermittent asthma (851363040) Mild intermittent asthma, uncomplicated (J45.20) Active confirmed Problem Uncomplicated mild persistent asthma (658993734) Mild persistent asthma, uncomplicated (J45.30) Active confirmed Problem Gastro-esophageal reflux disease without esophagitis (570020275) Gastro-esophageal reflux disease without esophagitis (K21.9) Active confirmed Problem Lower urinary tract symptoms due to benign prostatic hypertrophy (48792864930078) Benign prostatic hyperplasia with lower urinary tract symptoms (N40.1) Active confirmed Problem Hypothyroidism (29767339) TSH (thyroid-stimulat ing hormone deficiency) (E03.8) Active confirmed Problem Obstructive sleep apnea (68123635) Obstructive sleep apnea (G47.33) Active confirmed Problem Seasonal allergy (676271909) Seasonal allergies (J30.2) Active confirmed Vital Signs Heart Rate 97 /min 06/25/2024 Temperature 97.8 degrees Fahrenheit 06/25/2024 Blood pressure diastolic 80 mm Hg 06/25/2024 Oximetry 97 % 06/25/2024 Height 5'7 in 06/25/2024 Blood pressure systolic 128 mm Hg 06/25/2024 Weight 221 lbs 06/25/2024 BMI 34.61 kg/m2 06/25/2024 Encounters Encounter Location Date Provider Diagnosis [address] [address] 06/25/2024 Mary Cantu Essential (primary) hypertension I10 ; Mild persistent asthma, uncomplicated J45.30 ; Mixed hyperlipidemia E78.2 ; Gastro-esophageal reflux disease without esophagitis K21.9 and Impaired fasting glucose R73.[address] [address] 08/12/[address] [address] 06/25/2024 [facility] [address] [place] [address] 08/10/2024 [facility] [address] [place] [address] 09/07/2024 [facility] [address] [place] [address] 11/25/2024 [facility] [address] [place] [address] 11/25/2024 [facility] Assessments Encounter Date Diagnosis (ICD Code) Assessment Notes Treatment Notes Treatment Clinical Notes Section Notes 06/25/2024 Essential (primary) hypertension (ICD-10 - I10) Mr Evans is a 59-year-old gentleman with hypertension, hyperlipidemia and mild persistent asthma here for annual physical. Plan is as follows: Hypertension. - BP is well controlled. Cut back on sodium intake. Advised appropriate hydration, cardio exercises and weight loss. Continue on Losartan 50 MG and Chlorthalidone 25 MG once a day. Hyperlipidemia. - Total cholesterol 259, LDL 187. Increased Continue Atorvastatin 80 MG once a day. Recheck lipid panel. GERD. -Stable on Pantoprazole 20 MG once a day. BPH. -Improved. Continue Tamsulosin 0.4 MG once a day. Asthma. -Stable on inhalersand he also takes Montelukast 10 MG once a day. Impaired fasting glucose. - A1c of 5.8. Dietary restrictions, regimental exercise and weight loss advised. Class 1 obesity. -Advised dietary restrictions and regimental exercise. Goal is to lose 5-6 lbs a month. Screening blood work before next appointment. General health concerns discussed with patient. I have rendered the services for this patient under direct supervision of Dr. Demarco, who did not see the patient but was available upon request 06/25/2024 Mild persistent asthma, uncomplicated (ICD-10 - J45.30) Mr Evans is a 59-year-old gentleman with hypertension, hyperlipidemia and mild persistent asthma here for annual physical. Plan is as follows: Hypertension. - BP is well controlled. Cut back on sodium intake. Advised appropriate hydration, cardio exercises and weight loss. Continue on Losartan 50 MG and Chlorthalidone 25 MG once a day. Hyperlipidemia. - Total cholesterol 259, LDL 187. Increased Continue Atorvastatin 80 MG once a day. Recheck lipid panel. GERD. -Stable on Pantoprazole 20 MG once a day. BPH. -Improved. Continue Tamsulosin 0.4 MG once a day. Asthma. -Stable on inhalersand he also takes Montelukast 10 MG once a day. Impaired fasting glucose. - A1c of 5.8. Dietary restrictions, regimental exercise and weight loss advised. Class 1 obesity. -Advised dietary restrictions and regimental exercise. Goal is to lose 5-6 lbs a month. Screening blood work before next appointment. General health concerns discussed with patient. I have rendered the services for this patient under direct supervision of Dr. Demarco, who did not see the patient but was available upon request 06/25/2024 Mixed hyperlipidemia (ICD-10 - E78.2) Mr Evans is a 59-year-old gentleman with hypertension, hyperlipidemia and mild persistent asthma here for annual physical. Plan is as follows: Hypertension. - BP is well controlled. Cut back on sodium intake. Advised appropriate hydration, cardio exercises and weight loss. Continue on Losartan 50 MG and Chlorthalidone 25 MG once a day. Hyperlipidemia. - Total cholesterol 259, LDL 187. Increased Continue Atorvastatin 80 MG once a day. Recheck lipid panel. GERD. -Stable on Pantoprazole 20 MG once a day. BPH. -Improved. Continue Tamsulosin 0.4 MG once a day. Asthma. -Stable on inhalersand he also takes Montelukast 10 MG once a day. Impaired fasting glucose. - A1c of 5.8. Dietary restrictions, regimental exercise and weight loss advised. Class 1 obesity. -Advised dietary restrictions and regimental exercise. Goal is to lose 5-6 lbs a month. Screening blood work before next appointment. General health concerns discussed with patient. I have rendered the services for this patient under direct supervision of Dr. Demarco, who did not see the patient but was available upon request 06/25/2024 Gastro-esophageal reflux disease without esophagitis (ICD-10 - K21.9) Mr Evans is a 59-year-old gentleman with hypertension, hyperlipidemia and mild persistent asthma here for annual physical. Plan is as follows: Hypertension. - BP is well controlled. Cut back on sodium intake. Advised appropriate hydration, cardio exercises and weight loss. Continue on Losartan 50 MG and Chlorthalidone 25 MG once a day. Hyperlipidemia. - Total cholesterol 259, LDL 187. Increased Continue Atorvastatin 80 MG once a day. Recheck lipid panel. GERD. -Stable on Pantoprazole 20 MG once a day. BPH. -Improved. Continue Tamsulosin 0.4 MG once a day. Asthma. -Stable on inhalersand he also takes Montelukast 10 MG once a day. Impaired fasting glucose. - A1c of 5.8. Dietary restrictions, regimental exercise and weight loss advised. Class 1 obesity. -Advised dietary restrictions and regimental exercise. Goal is to lose 5-6 lbs a month. Screening blood work before next appointment. General health concerns discussed with patient. I have rendered the services for this patient under direct supervision of Dr. Demarco, who did not see the patient but was available upon request 06/25/2024 Impaired fasting glucose (ICD-10 - R73.01) Mr Evans is a 59-year-old gentleman with hypertension, hyperlipidemia and mild persistent asthma here for annual physical. Plan is as follows: Hypertension. - BP is well controlled. Cut back on sodium intake. Advised appropriate hydration, cardio exercises and weight loss. Continue on Losartan 50 MG and Chlorthalidone 25 MG once a day. Hyperlipidemia. - Total cholesterol 259, LDL 187. Increased Continue Atorvastatin 80 MG once a day. Recheck lipid panel. GERD. -Stable on Pantoprazole 20 MG once a day. BPH. -Improved. Continue Tamsulosin 0.4 MG once a day. Asthma. -Stable on inhalersand he also takes Montelukast 10 MG once a day. Impaired fasting glucose. - A1c of 5.8. Dietary restrictions, regimental exercise and weight loss advised. Class 1 obesity. -Advised dietary restrictions and regimental exercise. Goal is to lose 5-6 lbs a month. Screening blood work before next appointment. General health concerns discussed with patient. I have rendered the services for this patient under direct supervision of Dr. Demarco, who did not see the patient but was available upon request Plan Of Treatment Pending Test Test Name Order Date Chest X-ray PA and lateral 11/14/2023 Lipid Panel-[id number] 02/10/2024 Lipid Panel-[id number] 06/25/2024 Comp. Metabolic Panel [id number] A1c w/GlycoMark(R) Reflex-[id number] TSH+Free T4 02/10/2024 Next Appt Details Provider Name:VENKAT DEMARCO , 06/22/2025 11:00:00 AM, [address] [place] [address], [place], [address], Insurance Providers Payer Name Payer Address Payer Phone Subscriber Number Group Number Insured Name Patient Relationship to Insured Coverage Start Date Coverage End Date [facility] [address] [place] [phone] [id number] Ryan Evans Self - patient is the insured 4 Medical (General) History Medical History History ICD Code hyperlipidemia hypertension mild persistent asthma Surgical History Surgery Date(Month/Year) bilateral carpal tunnel decompression left inguinal hernia x2 right total knee replacement left umbilical hernia repair Hospitalization History Reason Date(Month/Year) above surgery
--- OUTSIDE RECORDS SUMMARY | 2025-06-05 07:55 | XMS_ITS | Clinical Summary ---
Author Organization [address] [facility] Address [address] [place] [address] Phone Care Team Providers Care Church Warden Name Role Phone Joanie Conley MD Primary Care Provider [phone] Allergies No known active allergies Medications chlorthalidone [...] time each day. 7 each 5 Active Additional Information Patient not taking.Reported on 06/03/2025 Active Problems Problem Noted Date Diagnosed Date [...] Encounters Date Type Department Care Team Description 06/03/2025 10:16 AM EDT Anesthesia Event [facility] [address] [place] [address] Edy Carmen MD McAdams, Megan, CRNA 06/03/2025 8:22 AM EDT Hospital Encounter [facility] [address] [place] [phone] Andre Vasques MD McAdams, Megan, CRNA Epigastric pain; Gastroesophageal reflux disease without esophagitis; History of Jayne fundoplication 03/15/2025 11:00 AM EDT Office Visit General Surgery - [place] [address] [place] [address] Zain Walsh MD History of laparoscopic cholecystectomy (Primary Dx); Gastric mass 03/09/2025 10:20 AM EDT Office Visit Gastroenterology - [place] [address] [facility] [address] [place] [address] Andre Vasques MD Epigastric pain (Primary Dx); History of Jayne fundoplication; Gastric lesion from Last 3 Months Immunizations Immunization Administration Dates Next Due Influenza trivalent, 0.5mL, preservative free (Fluarix; FluLaval; Fluzone) ages 6mo and older (Afluria) 3 years and older 10/18/2016 Pneumococcal polysaccharide 23 valent (Pneumovax 23) 2yo and older 10/18/2016 Tdap Tetanus diptheria acell ular pertussis (Boostrix; Adacel) 7yo and older 11/14/2017 Surgical History Surgery Date Site/Laterality Comments OTHER SURGICAL HISTORY 04/07/2015 PROCEDURE: SD LAPS SURG ESOPG/GSTR FUNDOPLASTY; COMMENT: jayne fundoplication HERNIA REPAIR 01/21/2018 Left PROCEDURE: HISTORICAL HERNIA REPAIR/ING; COMMENT: with mesh WRIST MASS EXCISION 2015 Right PROCEDURE: SD EXCISION GANGLION WRIST DORSAL/VOLAR PRIMARY CARPAL TUNNEL RELEASE 2007 Bilateral PROCEDURE: HISTORICAL CARPAL TUNNEL REL COLONOSCOPY 09/18/2016 PROCEDURE: HISTORICAL COLONOSCOPY; COMMENT: Internal hemorrhoids, diverticulosis, Repeat 10 yrs TOTAL KNEE ARTHROPLASTY Right PROCEDURE: HISTORICAL TOTAL KNEE REPLACE UPPER GASTROINTESTINAL ENDOSCOPY 01/27/2016 PROCEDURE: SD UPPER GI ENDOSCOPY PERFORMED; COMMENT: H pylori, [...] DX:History of Helicobacter p ylori infection; COMMENT: 2016 Asthma 07/05/2017 DX:Asthma Diverticulosis of intestine 10/05/2016 [...] Mass Index 34.46 06/03/2025 9:27 AM EDT Plan of Treatment Upcoming Encounters Date Type Department Care Team (Late st Contact Info) Description 06/14/2025 10:30 AM EDT Office Visit General Surgery - [address] [place] [address] Zain Walsh MD [facility] [place] [address] Health Maintenance Due Date Last Done Comments Zoster Vaccines (1 of 2) 2015 Pneumococcal Vaccine: 50+ Years (2 of 2 - PCV) 10/18/2017 10/18/2016 HIV Screening 08/04/2022 Hepatitis C Screening 08/04/2022 Hypertension/CHF/CAD Annual BMP Blood Test 08/04/2022 09/12/2018 Social Influencers of Health Screening 08/04/2022 Cholesterol Screening (Lipid Panel) 05/20/2023 05/20/2018 Depression Screening 08/26/2024 RSV Immunization Adult Patients (1 - Risk 60-74 years 1-dose series) 2025 COVID-19 Vaccine (3 - 2024-2 6 season) 2025 02/15/2021, 01/25/2021 Influenza Vaccine (#1) 2025 9, 10/18/2016 DTaP,Tdap,and [...] disease without esophagitis History of Jayne fundoplication EXTERNAL COLONOSCOPY REPORT Routine 10/21/2024 2:48 PM EST ANNUAL BMP BLOOD TEST Routine 09/12/2018 LIPID PANEL Routine 05/20/2018 from Last 3 Months or Most Recently Relevant to Health Maintenance Results * EGD Anesthesia - MAC; [facility] ENDOSCOPY (06/03/2025 10:34 AM EDT) Anatomical Region Laterality Modality Other 06/03/2025 10:1 4 AM EDT Impressions 06/03/2025 10:29 AM EDT - Biopsies were taken with a cold forceps for histology in the gastric body. Recommendation: - Await pathology results. - Observe patient's clinical course. Narrative 06/03/2025 10:29 AM EDT [facility] GI Patient Name: Lina Cardona Procedure Date: 06/03/2025 10:14 AM Date of : 1965 Age: 60 Gender: Male Note Status: Finalized Attending MD: Andre Vasques MD, Procedure Date No Time: 06/03/2025 Procedure: Upper GI endoscopy Indications: Epigastric abdominal pain, Heartburn Providers: Andre Vasques MD Referring MD: Andre Vsaques MD Medicines: Propofol per Anesthesia Complications: No [...] was minimal. Procedure Code(s): --- Professional --- 73345, Esophagogastroduodenoscopy, flexible, transoral; with biopsy, single or multiple Diagnosis Code(s): --- Professional --- R10.13, Epigastric pain R12, Heartburn CPT copyright 2020 [employer]. All rights reserved. The codes documented in this report are preliminary and upon fire engine pump operator review may be revised to meet current compliance requirements. Andre Vasques MD 06/03/2025 10:29:42 AM This report has been signed electronically.Andre Vasques MD Number of Addenda: 0 Note Initiated On: 06/03/2025 10:14 AM Scope In: Scope Out: Endoscopy Department at [facility] - [address] [place] [phone] Procedure Note Andre Vasques MD - 06/03/2025 [facility] GI Patient Name: Lina Cardona Procedure Date: 06/03/2025 10:14 AM Date [...] loss wasminimal. Procedure Code(s): --- Professional --- 28161, Esophagogastroduodenoscopy, flexible, transoral; with biopsy, single or multiple Diagnosis Code(s): --- Professional --- R10.13, Epigastric pain R12, Heartburn CPT copyright 2020 [employer]. All rights reserved. The codes documented in this report are preliminary and upon fire engine pump operator reviewmay be revised to meet current compliance requirements. Andre Vasques MD 06/03/2025 10:29:42 AM This report has been signed electronically.Andre Vasques MD Number of Addenda: 0 Note Initiated On: 06/03/2025 10:14 AM Scope In: Scope Out: Endoscopy Department at [facility] - [address] [place] [phone] IMPRESSION: - Biopsies were taken with a cold forceps for histology in the gastric body. Recommendation: - Await pathology results. - Observe patient's clinical course. Andre Vasques MD GI~PROCEDURE ORDERABLES Final Re sult * Tissue exam (06/03/2025 10:24 AM EDT) Final Diagnosis A. Gastric, Body, biopsies: - Gastric oxyntic mucosa with no specific pathologic changes. - No Helicobacter pylori organisms are morphologically identified. 06/04/2025 9:43 AM EDT [facility] at 0943 EDT Gross Description A. Gastric, Body, biopsies: Labeled gastric body biopsy . Received in formalin are two irregular bhardwaj mucosal tissue fragments, each measuring approximately 0.5 cm in greatest dimension, which are wrapped in paper and submitted in toto in one cassette, two pieces, multiple levels on one slide. LES 06/04/2025 9:43 AM EDT [facility] Disclaimer Unless otherwise specified, all tissue is 10% NB formalin fixed and paraffin embedded. 06/04/2025 9:43 AM EDT [facility] Tissue Gastric corpus structure / Unknown 06/03/2025 10:24 AM EDT 06/03/2025 11:37 AM EDT Andre Vasques MD LAB PATHOLOGY ORDERABLES Final R esult LINSEY BRAVO MD ([facility]) [facility] [address] [place] [address], * External Colonoscopy Report (10/21/2024 2:48 PM EST) Anatomical Region Laterality Modality Endoscopy Historical Provider GI~PROCEDURE ORDERABLES F inal Result * Annual BMP Blood Test (09/12/2018) Pathologist [facility] Annual BMP Blood Test abstracted Historical Provider [...] Most Recently Relevant to Health Maintenance Insurance [employer] Advance Directives * Full Code - Default [...] currently active code status orders. Care Teams Church Warden Relationship Specialty Start Date End Date Joanie Conley MD [address] [place] [address] PCP - General Internal Medicine 08/24/21
== END 2025-06-05 07:50 | disposition home or self-care (01) ==
LOC: HO.CT 07:49
PROVIDERS: PCP Hospitalist; Visit Provider Hospitalist
DX: R91.1 Solitary pulmonary nodule (principal)
CPT/HCPCS: 71250

== ENCOUNTER → 2025-06-05 07:55 | Outpatient (BNV) | payer BC, SELFPAY | PROVIDERS: PCP Hospitalist; Visit Provider Radiology Diagnostic Radiology | DX: R91.1 Solitary pulmonary nodule (principal) | CPT/HCPCS: 71250 ==

== ENCOUNTER 2025-07-20 14:36 | Outpatient (AMB) | payer BC, SELFPAY ==
[2025-07-20 14:40] VITALS: BP 118/74; PULSE 102; O2SAT 95; BMI 34.5
--- NOTE | 2025-07-20 14:40 | A.OFFVIS_ITS ---
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 The patient states that he started developing worsening respiratory symptoms the last few years. He did have a methacholine challenge that was positive for hyperreactive airways in a diagnosis of asthma. 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 He did have allergy testing de monstrating significant allergens. The patient also is currently being seen by an processing talc and borate supervisor and is currently on allergy shots. The patient also was started on biologics including Nucala. The Nucala was not effective and therefore the patient recently was placed on Dupixent. On further questioning he does have significant nasal congestion. Has a hard time breathing through his nose. He has been using fluticasone nasal spray more recently got a new nasal spray. It does affect his sleep. The patient does have significant snoring does have an elevated Mead score of 11/24. He was already diagnosed with sleep apnea in the past but could not tolerate PAP therapy therefore he is no longer using it. The patient also had a CT scan of the chest which I personally reviewed done at [facility] in 2022. The patient had multiple pulmonary nodules but 1 nodules 5 mm in size in the right hemithorax. Has not been visualized sense. The patient needs a repeat CAT scan to assess this nodule at this time. If the nodule has not changed in that period of time 2 years then no additional imaging studies at least serially are warranted. Will go ahead and maximize his respiratory therapy by switching over to Breztri from Advair. The patient will continue with the biologic therapy and also immunotherapy. He will continue his allergy therapy. We also talked about nasal rinsing to try to help him with the nasal passages while he uses the fluticasone nasal spray. The patient will follow-up in 2-3 months. If he has any issues prior to this he will call for an earlier evaluation. 07/20/2025 the patient is here for pulmonary follow-up visit. Overall the patient is doing well. He continues to use the Breztri inhaler. Breztri seems to be affecting beneficial. In addition to that he is taking the Dupixent injections and does appear to be helpful. However, he does have triggers such as cold air causing him to have bronchospasms. The patient needs to wear scar for limit the exposure to the drastic changes in temperature. Specially because it is hyperreactive airways. The patient did undergo a CT scan of the chest which I did personally review. Pulmonary nodules are stable measuring 5 mm. This is what they measured back in 2022. Therefore no additional CAT scans warranted. The patient also has been struggling with the CPAP. He can not tolerate his mask. He did have a sleep study at [facility] will request a new [employer] company for him to start providing supplies. The patient needs to try a different mask that she has nasal pillows. If we can not get active with the [employer] company he may need to get another study to confirm the diagnosis. He will bring his CPAP into the next visit. [facility] Medical History (Updated 07/20/25 @ 21:54 by Praveen Burch MD) FARHAN (obstructive sleep apnea) Dyspnea Chronic allergic rhinitis Asthma Pulmonary nodule Social History Patient Tobacco Use Status: Never used Tobacco Review of Systems Const Reports daytime sleepiness, Reports snoring and Reports stops breathing during sleep Eyes Reports no additional complaints ENT Reports nasal congestion, Reports nasal discharge and Reports nasal obstruction Card Reports dyspnea on exertion Resp Reports cough, Reports dyspnea on exertion, Reports snoring and Reports wheezing GI Reports no additional complaints Musc Reports no additional complaints Skin/Breast Reports rash Neuro Reports no additional complaints Endo Reports no additional complaints Yazan/Lymph Reports no additional complaints Aller/Immun Reports wheezing Physical Exam Vital Signs: Last Vital Signs Pulse 102 H 07/20/25 14:40 BP 118/74 07/20/25 14:40 Pulse Ox 95 07/20/25 14:40 Oxygen Delivery Method Room Air 07/20/25 14:40 BMI result Body Mass Index 34.5 Const General: comfortable HEENT General nose exam: Abnormal mucous membranes and turbinates present boggy Neck Neck: Yes supple Chest Chest palpation & inspection: normal inspection of the chest Resp Effort & Inspection: normal respiratory effort Auscultation: diminished lung sounds Cardio Heart sounds: S1 normal heart sound present and S2 normal heart sound present GI Palpation (GI): Soft to palpation Skin General skin exam: no rashes or lesions noted Extrem General: Yes no clubbing, cyanosis or edema Assessment & Plan Assessment & Plan (1) Asthma: Code(s): J45.909 - Unspecified asthma, uncomplicated Category: Medical Qualifiers: Asthma complication type: uncomplicated Asthma persistence: persistent Asthma severity: moderate Qualified Code(s): J45.40 - Moderate persistent asthma, uncomplicated (2) Pulmonary nodule: Code(s): R91.1 - Solitary pulmonary nodule Category: Medical (3) Chronic allergic rhinitis: Code(s): J30.9 - Allergic rhinitis, unspecified Category: Medical (4) Dyspnea: Code(s): R06.00 - Dyspnea, unspecified Category: Medical Qualifiers: Dyspnea type: dyspnea on exertion Qualified Code(s): R06.09 - Other forms of dyspnea (5) FARHAN (obstructive sleep apnea): Code(s): G47.33 - Obstructive sleep apnea (adult) (pediatric) Category: Medical Plan Breztri BID BANDAR as needed continue Dupixent nasal pray Nasal rinsing with distilled water and packages CT chest stable nodule stable [id number] should wear a mask (N95) when working with organic and inorganic dust start FARHAN, needs supplies. Requesting P10 mask F/U 4-6 months Medications: New prednisone PO daily; Take 6 tabs daily x 3 days, then 5 tabs x 3 days, then 4 tabs x 3 days, then 3 tabs x 3 days, then 2 tabs daily x 3 days, then 1 tab x 3 days to complete. 63 tabs 0RF 18 days prednisone PO daily; Take 6 tabs daily x 3 days, then 5 tabs x 3 days, then 4 tabs x 3 days, then 3 tabs x 3 days, then 2 tabs daily x 3 days, then 1 tab x 3 days to complete. 63 tabs 0RF 18 days Refilled [id number] 160-9-4.8 mcg/actuation (Breztri Aerosphere) 2 inhalations inhalation BID 10.7 grams 11RF Coding Level of Care Code Est Pt Level 4 (93169) Diagnoses Moderate persistent asthma without complication J45.40 Asthma complication type: uncomplicated Asthma persistence: persistent Asthma severity: moderate Pulmonary nodule R91.1 Chronic allergic rhinitis J30.9 Dyspnea on exertion R06.09 Dyspnea type: dyspnea on exertion FARHAN (obstructive sleep apnea) G47.33 Time Spent (min) 17
--- OUTSIDE RECORDS SUMMARY | 2025-07-20 18:28 | XMS_ITS | Clinical Summary ---
Author Organization [address] [facility] Address [address] [place] [address] Phone Care Team Providers Care Plant General Manager Name Role Phone Joanie Conley MD Primary Care Provider Allergies No known active allergies Medications chlorthalidone [...] Encounters Date Type Department Care Team Description 06/14/2025 10:30 AM EDT Office Visit General Surgery - [place] [address] [facility] [address] [place] [address] Zain Walsh MD Gastric mass (Primary Dx) 06/03/2025 10:16 AM EDT Anesthesia Event Endoscopy [address] [place] [address] Edy Carmen MD McAdams, Megan, CRNA 06/03/2025 8:22 AM EDT - 06/03/2025 11:59 PM EDT Hospital Encounter Endoscopy [address] [place] [address] Andre Vasques MD McAdams, Megan, CRNA Epigastric pain; Gastroesophageal reflux disease without esophagitis; History of Jayne fundoplication Discharge Disposition: Home or Self Care from Last 3 Months Immunizations Immunization Administration Dates Next Due Influenza trivalent, 0.5mL, preservative free (Fluarix; FluLaval; Fluzone) ages 6mo and older (Afluria) 3 years and older 10/18/2016 Pneumococcal polysaccharide 23 valent (Pneumovax 23) 2yo and older 10/18/2016 Tdap Tetanus diptheria acell ular pertussis (Boostrix; Adacel) 7yo and older 11/14/2017 Surgical History Surgery Date Site/Laterality Comments OTHER SURGICAL HISTORY 04/07/2015 PROCEDURE: RI LAPS SURG ESOPG/GSTR FUNDOPLASTY; COMMENT: jayne fundoplication HERNIA REPAIR 01/21/2018 Left PROCEDURE: HISTORICAL HERNIA REPAIR/ING; COMMENT: with mesh WRIST MASS EXCISION 2015 Right PROCEDURE: RI EXCISION GANGLION WRIST DORSAL/VOLAR PRIMARY CARPAL TUNNEL RELEASE 2007 Bilateral PROCEDURE: HISTORICAL CARPAL TUNNEL REL COLONOSCOPY 09/18/2016 PROCEDURE: HISTORICAL COLONOSCOPY; COMMENT: Internal hemorrhoids, diverticulosis, Repeat 10 yrs TOTAL KNEE ARTHROPLASTY Right PROCEDURE: HISTORICAL TOTAL KNEE REPLACE UPPER GASTROINTESTINAL ENDOSCOPY 01/27/2016 PROCEDURE: RI UPPER GI ENDOSCOPY PERFORMED; COMMENT: H pylori, [...] Sign Reading Time Taken Comments Blood Pressure 147/94 06/14/2025 10:12 AM EDT Pulse 75 06/14/2025 10:12 AM EDT Temperature 36.2 C (97.1 F) 06/03/2025 9:27 AM EDT Respiratory Rate 16 06/03/2025 10:55 AM EDT Oxygen Saturation 98% 06/03/2025 10:55 AM EDT Inhaled Oxygen Concentration - - Weight 101 kg (223 lb 9.6 oz) 06/14/2025 10:12 A M EDT Height 170.2 cm (5' 7 ) 06/14/2025 10:12 AM EDT Body Mass Index 35.02 06/14/2025 10:12 AM EDT Plan of Treatment Health Maintenance Due Date Last Done Comments RSV Immunization Adult Patients (1 - Risk 50-74 years 1-dose series) 2015 Zoster Vaccines (1 of 2) 2015 Pneumococcal Vaccine: 50+ Years (2 of 2 - PCV) 10/18/2017 10/18/2016 HIV Screening 08/04/2022 Hepatitis C Screening 08/04/2022 Hypertension/CHF/CAD Annual BMP Blood Test 08/04/2022 09/12/2018 Social Influencers of Health Screening 08/04/2022 Cholesterol Screening (Lipid Panel) 05/20/2023 05/20/2018 Depression Screening 08/26/2024 COVID-19 Vaccine (3 - 2024-2 6 season) [...] Maintenance Results * EGD Anesthesia - MAC; [facility] ENDOSCOPY (06/03/2025 10:34 AM EDT) Anatomical Region Laterality Modality Other 06/03/2025 10:1 4 AM EDT Impressions 06/03/2025 10:29 AM EDT - Biopsies were taken with a cold forceps for histology in the gastric body. Recommendation: - Await pathology results. - Observe patient's clinical course. Narrative 06/03/2025 10:29 AM EDT GI Patient Name: Lina Cardona Procedure Date: [...] was minimal. Procedure Code(s): --- Professional --- 62389, Esophagogastroduodenoscopy, flexible, transoral; with biopsy, single or multiple Diagnosis Code(s): --- Professional --- R10.13, Epigastric pain R12, Heartburn CPT copyright 2020 [employer]. All rights reserved. The codes documented in this report are preliminary and upon rivet catcher review may be revised to meet current compliance requirements. Andre Vasques MD 06/03/2025 10:29:42 AM This report has been signed electronically.Andre Vasques MD Number of Addenda: 0 Note Initiated On: 06/03/2025 10:14 AM Scope In: Scope Out: Endoscopy Department at - [address] [place] [phone] Procedure Note Andre Vasques MD - 06/03/2025 GI Patient Name: Lina Cardona Procedure Date: 06/03/2025 10:14 AM Date of : 1965 Age: 60 Gender: Male Note Status: Finalized Attending MD: Anrde Vasques MD, Procedure Date No Time: 06/03/2025 [...] loss wasminimal. Procedure Code(s): --- Professional --- 01593, Esophagogastroduodenoscopy, flexible, transoral; with biopsy, single or multiple Diagnosis Code(s): --- Professional --- R10.13, Epigastric pain R12, Heartburn CPT copyright 2020 [employer]. All rights reserved. The codes documented in this report are preliminary and upon rivet catcher reviewmay be revised to meet current compliance requirements. Andre Vasques MD 06/03/2025 10:29:42 AM This report has been signed electronically.Andre Vasques MD Number of Addenda: 0 Note Initiated On: 06/03/2025 10:14 AM Scope In: Scope Out: Endoscopy Department at - [address] [place] [phone] IMPRESSION: - Biopsies were taken with a [...] are morphologically identified. 06/04/2025 9:[address] [facility] at 0943 EDT Gross Description A. Gastric, Body, biopsies: Labeled gastric body biopsy . Received in formalin are two irregular bhardwaj mucosal tissue fragments, each measuring approximately 0.5 cm in greatest dimension, which are wrapped in paper and submitted in toto in one cassette, two pieces, multiple levels on one slide. LES 06/04/2025 9:[address] [facility] Disclaimer Unless otherwise specified, all tissue is 10% NB formalin fixed and paraffin embedded. 06/04/2025 9:[address] [facility] Tissue Gastric corpus structure / Unknown 06/03/2025 10:24 AM EDT 06/03/2025 11:37 AM EDT Andre Vasques MD LAB PATHOLOGY ORDERABLES Final R esult [facility] [address] [place] [address], * External Colonoscopy Report (10/21/2024 2:48 PM EST) Anatomical Region Laterality Modality Endoscopy us Historical Provider GI~PROCEDURE ORDERABLES F inal Result [...] Most Recently Relevant to Health Maintenance Insurance [employer] [address] Advance Directives * Full Code - Default [...] currently active code status orders. Care Teams Plant General Manager Relationship Specialty Start Date End Date Jonaie Conley MD [address] [place] [phone] PCP - General Internal Medicine 08/24/21
--- OUTSIDE RECORDS SUMMARY | 2025-07-20 18:28 | XMS_ITS ---
Author Name [facility] Organization Unknown Care Team Organization Name Specialty Phone Email Start Date End [facility] 12/31/2022 04/13/2024
--- OUTSIDE RECORDS SUMMARY | 2025-07-20 18:28 | XMS_ITS | Patient Health Record ---
Author Organization [facility] Address [address] [place] [address] Care Team Providers Care Fire Lieutenant Name Role Phone NILAM ROBLEDO Primary Care Provider [phone] Allergies No Known Allergies Reason For Referral Reason Evaluation and manag ement Please evaluate and treat Diagnosis 1 Benign prostatic hyp erplasia with lower urinary tract symptoms (N40.1) Referral Organization [facility] Referring Provider First Name VENKAT Referring Provider Last Name NILAM Referring Provider Speciality Internal M edicine Referred Provider Specialty Urology General Notes Please call the [facility] to schedule the appointment, Encounter created and SMS sent to the pt.Dennis Charmain 06/22/2025 04:32:34 PM > Referral Priority Routine Medications Medication SIG (Take, Route, Frequency, Duration) Notes Start Date End Date Status Tamsulosin HCl 0.4 MG 1 capsule Orally O nce a day; Duration: 90 days 05/21/2024 Active Flonase Allergy Relief 50 MCG/ACT 1 spray in each nostril Nasally Once a day; Duration: 30 days Active Atorvastatin Calcium 80 MG TAKE 1 TABLET BY MOUTH EVERY DAY; Duration: 90 days Active Losartan Potassium 50 MG 1 tablet Orally Once a day; Duration: 30 days Active Chlorthalidone 25 MG 1 tablet in the mor apurva with food Orally; Duration: 90 days Active Montelukast Sodium 10 MG 1 tablet Orally Once a day Active Advair HFA 115-21 MCG/ACT 2 puffs Inhala tion Twice a day; Duration: 30 days 11/14/2023 Active Albuterol Sulfate (2.5 MG/3ML) 0.083% 3 mL as needed Inhalation every 6 hrs Active Pantoprazole Sodium 20 MG 1 tablet Orall y Once a day Active Zepbound 2.5 MG/0.5ML 2.5 mg Subcutaneou s weekly; Duration: 30 days 06/22/2025 Active Azelastine HCl 0.1 % as directed Nasally DAILY; Duration: 30 days 08/10/2024 Active Immunizations Vaccine Route Administration Date Status Comme nts Prevnar 20 IM Intramuscular 06/22/2025 Administered Social History Tobacco Use: Social History Observation Description Date Details (start date - stop date) Never Smoker NA - NA Tobacco Use/Smoking Question Answer Notes Are you a nonsmoker Problems Problem Type SNOMED Code ICD Code Onset Dates Problem Status W/U Status Risk Notes Problem Hypothyroidism (98316160) Hypothyroidism, unspecified (E03.9) Active confirmed Problem Vitamin D deficiency (22460063) Vitamin D deficiency, unspecified (E55.9) Active confirmed Problem Obesity due to excess calories (758041862) Other obesity due to excess calories (E66.09) Active confirmed Problem Mixed hyperlipidemia (053545698) Mixed hyperlipidemia (E78.2) Active confirmed Problem Essential hypertension (30630549) Essential (primary) hypertension (I10) Active confirmed Problem Mild intermittent asthma (192272598) Mild intermittent asthma, uncomplicated (J45.20) Active confirmed Problem Uncomplicated mild persistent asthma (843660633) Mild persistent asthma, uncomplicated (J45.30) Active confirmed Problem Gastro-esophageal reflux disease without esophagitis (895306930) Gastro-esophageal reflux disease without esophagitis (K21.9) Active confirmed Problem Lower urinary tract symptoms due to benign prostatic hypertrophy (20946761315834) Benign prostatic hyperplasia with lower urinary tract symptoms (N40.1) Active confirmed Problem Hypothyroidism (82598897) TSH (thyroid-stimulat ing hormone deficiency) (E03.8) Active confirmed Problem Obstructive sleep apnea (84311045) Obstructive sleep apnea (G47.33) Active confirmed Problem Seasonal allergy (951044887) Seasonal allergies (J30.2) Active confirmed Vital Signs Heart Rate 94 /min 06/22/2025 Temperature 96.7 degrees Fahrenheit 06/22/2025 Oximetry 100 % 06/22/2025 Blood pressure diastolic 90 mm Hg 06/22/2025 Height 5'7'' in 06/22/2025 Blood pressure systolic 130 mm Hg 06/22/2025 Weight 224.9 lbs 06/22/2025 BMI 35.22 kg/m2 06/22/2025 Encounters Encounter Location Date Provider Diagnosis [address] [place] [address] 08/12/[address] [place] [address] 06/22/2025 [facility] Essential (primary) hypertension I10 ; Annual physical exam Z00.00 ; Mild persistent asthma, uncomplicated J45.30 ; Mixed hyperlipidemia E78.2 ; Gastro-esophageal reflux disease without esophagitis K21.9 ; Impaired fasting glucose R73.01 ; Hypothyroidism, unspecified E03.9 ; Vitamin D deficiency, unspecified E55.9 ; Encounter for screening for malignant neoplasm of prostate Z12.5 ; Obstructive sleep apnea G47.33 ; Other obesity due to excess calories E66.09 and Encounter for immunization Z23 [address] [place] [address] 08/10/[address] [place] [address] 09/07/[address] [place] [address] 11/25/[address] [place] [address] 11/25/[address] [place] [address] 06/22/[address] [place] [address] 07/09/2025 [facility] Other obesity due to excess calories E66.09 Assessments Encounter Date Diagnosis (ICD Code) Assessment Notes Treatment Notes Treatment Clinical Notes Section Notes 06/22/2025 Essential (primary) hypertension (ICD-10 - I10) Mr Evans is a 59-year-old gentleman with hypertension, hyperlipidemia and mild persistent asthma here for annual physical. Plan is as follows: Hypertension. - BP is well controlled. Cut back on sodium intake. Advised appropriate hydration, cardio exercises and weight loss. Continue on Losartan 50 MG and Chlorthalidone 25 MG once a day. - EKG is normal sinus rhythm at 87 [address]pm with no acute ST or T wave changes, no bundle branch blocks, normal intervals - hyperlipidemia. He is on atorvastatin 40 mg daily and he mentions that he takes it regularly but there is no improvement in his lipid panel. We will increase atorvastatin to 80 mg daily and repeat lipid panel GERD. -Stable on Pantoprazole 20 MG once a day. BPH. -Improved. Continue Tamsulosin 0.4 MG once a day. He could not tolerate digital rectal exam and he is given referral to urologist Asthma. -Stable on inhalersand he also takes Montelukast 10 MG once a day Inocencio follows up with Dr. Burch at [facility]. [place]. - Diagnosed with sleep apnea and he cannot tolerate CPAP. 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 Duval if he is appropriate candidate for nasal pillow Impaired fasting glucose. - A1c of 5.8. Dietary restrictions, regimental exercise and weight loss advised. Subclinical hypothyroidism. - Check TSH and if needed we will start on low-dose levothyroxine. Vitamin D deficiency. - Take gvdd-vdx-aolsxbd vitamin D3 1000 international units daily Class 1 obesity. -Advised dietary restrictions and regimental exercise. Goal is to lose 5-6 lbs a month. Considering his history of obstructive sleep apnea. He will benefit from GLP/GIP. Prescription sent. Side effects explained. Screening blood work before next appointment. General health concerns discussed with patient. I 06/22/2025 Annual physical exam (ICD-10 - Z00.00) Mr Evans is a 59-year-old gentleman with hypertension, hyperlipidemia and mild persistent asthma here for annual physical. Plan is as follows: Hypertension. - BP is well controlled. Cut back on sodium intake. Advised appropriate hydration, cardio exercises and weight loss. Continue on Losartan 50 MG and Chlorthalidone 25 MG once a day. - EKG is normal sinus rhythm at 87 bpm with no acute ST or T wave changes, no bundle branch blocks, normal intervals - hyperlipidemia. He is on atorvastatin 40 mg daily and he mentions that he takes it regularly but there is no improvement in his lipid panel. We will increase atorvastatin to 80 mg daily and repeat lipid panel GERD. -Stable on Pantoprazole 20 MG once a day. BPH. -Improved. Continue Tamsulosin 0.4 MG once a day. He could not tolerate digital rectal exam and he is given referral to urologist Asthma. -Stable on inhalersand he also takes Montelukast 10 MG once a day Inocencio follows up with Dr. Burch at [facility]. [place]. - Diagnosed with sleep apnea and he cannot tolerate CPAP. 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 Duval if he is appropriate candidate for nasal pillow Impaired fasting glucose. - A1c of 5.8. Dietary restrictions, regimental exercise and weight loss advised. Subclinical hypothyroidism. - Check TSH and if needed we will start on low-dose levothyroxine. Vitamin D deficiency. - Take opfl-rbp-ifnqlpw vitamin D3 1000 international units daily Class 1 obesity. -Advised dietary restrictions and regimental exercise. Goal is to lose 5-6 lbs a month. Considering his history of obstructive sleep apnea. He will benefit from GLP/GIP. Prescription sent. Side effects explained. Screening blood work before next appointment. General health concerns discussed with patient. I 07/09/2025 Other obesity due to excess calories (ICD-10 - E66.09) 06/22/2025 Mild persistent asthma, uncomplicated (ICD-10 - J45.30) Mr Evans is a 59-year-old gentleman with hypertension, hyperlipidemia and mild persistent asthma here for annual physical. Plan is as follows: Hypertension. - BP is well controlled. Cut back on sodium intake. Advised appropriate hydration, cardio exercises and weight loss. Continue on Losartan 50 MG and Chlorthalidone 25 MG once a day. - EKG is normal sinus rhythm at 87 bpm with no acute ST or T wave changes, no bundle branch blocks, normal intervals - hyperlipidemia. He is on atorvastatin 40 mg daily and he mentions that he takes it regularly but there is no improvement in his lipid panel. We will increase atorvastatin to 80 mg daily and repeat lipid panel GERD. -Stable on Pantoprazole 20 MG once a day. BPH. -Improved. Continue Tamsulosin 0.4 MG once a day. He could not tolerate digital rectal exam and he is given referral to urologist Asthma. -Stable on inhalersand he also takes Montelukast 10 MG once a day Inocencio follows up with Dr. Burch at [facility]. [place]. - Diagnosed with sleep apnea and he cannot tolerate CPAP. 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 Duval if he is appropriate candidate for nasal pillow Impaired fasting glucose. - A1c of 5.8. Dietary restrictions, regimental exercise and weight loss advised. Subclinical hypothyroidism. - Check TSH and if needed we will start on low-dose levothyroxine. Vitamin D deficiency. - Take xiof-dll-sjrmwgu vitamin D3 1000 international units daily Class 1 obesity. -Advised dietary restrictions and regimental exercise. Goal is to lose 5-6 lbs a month. Considering his history of obstructive sleep apnea. He will benefit from GLP/GIP. Prescription sent. Side effects explained. Screening blood work before next appointment. General health concerns discussed with patient. I 06/22/2025 Mixed hyperlipidemia (ICD-10 - E78.2) Mr Evans is a 59-year-old gentleman with hypertension, hyperlipidemia and mild persistent asthma here for annual physical. Plan is as follows: Hypertension. - BP is well controlled. Cut back on sodium intake. Advised appropriate hydration, cardio exercises and weight loss. Continue on Losartan 50 MG and Chlorthalidone 25 MG once a day. - EKG is normal sinus rhythm at 87 bpm with no acute ST or T wave changes, no bundle branch blocks, normal intervals - hyperlipidemia. He is on atorvastatin 40 mg daily and he mentions that he takes it regularly but there is no improvement in his lipid panel. We will increase atorvastatin to 80 mg daily and repeat lipid panel GERD. -Stable on Pantoprazole 20 MG once a day. BPH. -Improved. Continue Tamsulosin 0.4 MG once a day. He could not tolerate digital rectal exam and he is given referral to urologist Asthma. -Stable on inhalersand he also takes Montelukast 10 MG once a day Inocencio follows up with Dr. Burch at [facility]. [place]. - Diagnosed with sleep apnea and he cannot tolerate CPAP. 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 Duval if he is appropriate candidate for nasal pillow Impaired fasting glucose. - A1c of 5.8. Dietary restrictions, regimental exercise and weight loss advised. Subclinical hypothyroidism. - Check TSH and if needed we will start on low-dose levothyroxine. Vitamin D deficiency. - Take jzjc-yfo-zhzvtjd vitamin D3 1000 international units daily Class 1 obesity. -Advised dietary restrictions and regimental exercise. Goal is to lose 5-6 lbs a month. Considering his history of obstructive sleep apnea. He will benefit from GLP/GIP. Prescription sent. Side effects explained. Screening blood work before next appointment. General health concerns discussed with patient. I 06/22/2025 Gastro-esophageal reflux disease without esophagitis (ICD-10 - K21.9) Mr Evans is a 59-year-old gentleman with hypertension, hyperlipidemia and mild persistent asthma here for annual physical. Plan is as follows: Hypertension. - BP is well controlled. Cut back on sodium intake. Advised appropriate hydration, cardio exercises and weight loss. Continue on Losartan 50 MG and Chlorthalidone 25 MG once a day. - EKG is normal sinus rhythm at 87 bpm with no acute ST or T wave changes, no bundle branch blocks, normal intervals - hyperlipidemia. He is on atorvastatin 40 mg daily and he mentions that he takes it regularly but there is no improvement in his lipid panel. We will increase atorvastatin to 80 mg daily and repeat lipid panel GERD. -Stable on Pantoprazole 20 MG once a day. BPH. -Improved. Continue Tamsulosin 0.4 MG once a day. He could not tolerate digital rectal exam and he is given referral to urologist Asthma. -Stable on inhalersand he also takes Montelukast 10 MG once a day Inocencio follows up with Dr. Burch at [facility]. [place]. - Diagnosed with sleep apnea and he cannot tolerate CPAP. 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 Duval if he is appropriate candidate for nasal pillow Impaired fasting glucose. - A1c of 5.8. Dietary restrictions, regimental exercise and weight loss advised. Subclinical hypothyroidism. - Check TSH and if needed we will start on low-dose levothyroxine. Vitamin D deficiency. - Take xhmz-wuz-brjfchv vitamin D3 1000 international units daily Class 1 obesity. -Advised dietary restrictions and regimental exercise. Goal is to lose 5-6 lbs a month. Considering his history of obstructive sleep apnea. He will benefit from GLP/GIP. Prescription sent. Side effects explained. Screening blood work before next appointment. General health concerns discussed with patient. I 06/22/2025 Impaired fasting glucose (ICD-10 - R73.01) Mr Evans is a 59-year-old gentleman with hypertension, hyperlipidemia and mild persistent asthma here for annual physical. Plan is as follows: Hypertension. - BP is well controlled. Cut back on sodium intake. Advised appropriate hydration, cardio exercises and weight loss. Continue on Losartan 50 MG and Chlorthalidone 25 MG once a day. - EKG is normal sinus rhythm at 87 bpm with no acute ST or T wave changes, no bundle branch blocks, normal intervals - hyperlipidemia. He is on atorvastatin 40 mg daily and he mentions that he takes it regularly but there is no improvement in his lipid panel. We will increase atorvastatin to 80 mg daily and repeat lipid panel GERD. -Stable on Pantoprazole 20 MG once a day. BPH. -Improved. Continue Tamsulosin 0.4 MG once a day. He could not tolerate digital rectal exam and he is given referral to urologist Asthma. -Stable on inhalersand he also takes Montelukast 10 MG once a day Inocencio follows up with Dr. Burch at [facility]. [place]. - Diagnosed with sleep apnea and he cannot tolerate CPAP. 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 Duval if he is appropriate candidate for nasal pillow Impaired fasting glucose. - A1c of 5.8. Dietary restrictions, regimental exercise and weight loss advised. Subclinical hypothyroidism. - Check TSH and if needed we will start on low-dose levothyroxine. Vitamin D deficiency. - Take mthx-kfs-xdghvjs vitamin D3 1000 international units daily Class 1 obesity. -Advised dietary restrictions and regimental exercise. Goal is to lose 5-6 lbs a month. Considering his history of obstructive sleep apnea. He will benefit from GLP/GIP. Prescription sent. Side effects explained. Screening blood work before next appointment. General health concerns discussed with patient. I 06/22/2025 Hypothyroidism, unspecified (ICD-10 - E03.9) Mr Evans is a 59-year-old gentleman with hypertension, hyperlipidemia and mild persistent asthma here for annual physical. Plan is as follows: Hypertension. - BP is well controlled. Cut back on sodium intake. Advised appropriate hydration, cardio exercises and weight loss. Continue on Losartan 50 MG and Chlorthalidone 25 MG once a day. - EKG is normal sinus rhythm at 87 bpm with no acute ST or T wave changes, no bundle branch blocks, normal intervals - hyperlipidemia. He is on atorvastatin 40 mg daily and he mentions that he takes it regularly but there is no improvement in his lipid panel. We will increase atorvastatin to 80 mg daily and repeat lipid panel GERD. -Stable on Pantoprazole 20 MG once a day. BPH. -Improved. Continue Tamsulosin 0.4 MG once a day. He could not tolerate digital rectal exam and he is given referral to urologist Asthma. -Stable on inhalersand he also takes Montelukast 10 MG once a day Inocencio follows up with Dr. Burch at [facility]. [place]. - Diagnosed with sleep apnea and he cannot tolerate CPAP. 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 Duval if he is appropriate candidate for nasal pillow Impaired fasting glucose. - A1c of 5.8. Dietary restrictions, regimental exercise and weight loss advised. Subclinical hypothyroidism. - Check TSH and if needed we will start on low-dose levothyroxine. Vitamin D deficiency. - Take nmsx-ttn-flwfiyl vitamin D3 1000 international units daily Class 1 obesity. -Advised dietary restrictions and regimental exercise. Goal is to lose 5-6 lbs a month. Considering his history of obstructive sleep apnea. He will benefit from GLP/GIP. Prescription sent. Side effects explained. Screening blood work before next appointment. General health concerns discussed with patient. I 06/22/2025 Vitamin D deficiency, unspecified (ICD-10 - E55.9) Mr Evans is a 59-year-old gentleman with hypertension, hyperlipidemia and mild persistent asthma here for annual physical. Plan is as follows: Hypertension. - BP is well controlled. Cut back on sodium intake. Advised appropriate hydration, cardio exercises and weight loss. Continue on Losartan 50 MG and Chlorthalidone 25 MG once a day. - EKG is normal sinus rhythm at 87 bpm with no acute ST or T wave changes, no bundle branch blocks, normal intervals - hyperlipidemia. He is on atorvastatin 40 mg daily and he mentions that he takes it regularly but there is no improvement in his lipid panel. We will increase atorvastatin to 80 mg daily and repeat lipid panel GERD. -Stable on Pantoprazole 20 MG once a day. BPH. -Improved. Continue Tamsulosin 0.4 MG once a day. He could not tolerate digital rectal exam and he is given referral to urologist Asthma. -Stable on inhalersand he also takes Montelukast 10 MG once a day Inocencio follows up with Dr. Burch at [facility]. [place]. - Diagnosed with sleep apnea and he cannot tolerate CPAP. 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 Duval if he is appropriate candidate for nasal pillow Impaired fasting glucose. - A1c of 5.8. Dietary restrictions, regimental exercise and weight loss advised. Subclinical hypothyroidism. - Check TSH and if needed we will start on low-dose levothyroxine. Vitamin D deficiency. - Take uixs-pku-rpxbezd vitamin D3 1000 international units daily Class 1 obesity. -Advised dietary restrictions and regimental exercise. Goal is to lose 5-6 lbs a month. Considering his history of obstructive sleep apnea. He will benefit from GLP/GIP. Prescription sent. Side effects explained. Screening blood work before next appointment. General health concerns discussed with patient. I 06/22/2025 Encounter for screening for malignant neoplasm of prostate (ICD-10 - Z12.5) Mr Evans is a 59-year-old gentleman with hypertension, hyperlipidemia and mild persistent asthma here for annual physical. Plan is as follows: Hypertension. - BP is well controlled. Cut back on sodium intake. Advised appropriate hydration, cardio exercises and weight loss. Continue on Losartan 50 MG and Chlorthalidone 25 MG once a day. - EKG is normal sinus rhythm at 87 bpm with no acute ST or T wave changes, no bundle branch blocks, normal intervals - hyperlipidemia. He is on atorvastatin 40 mg daily and he mentions that he takes it regularly but there is no improvement in his lipid panel. We will increase atorvastatin to 80 mg daily and repeat lipid panel GERD. -Stable on Pantoprazole 20 MG once a day. BPH. -Improved. Continue Tamsulosin 0.4 MG once a day. He could not tolerate digital rectal exam and he is given referral to urologist Asthma. -Stable on inhalersand he also takes Montelukast 10 MG once a day Inocencio follows up with Dr. Burch at [facility]. [place]. - Diagnosed with sleep apnea and he cannot tolerate CPAP. 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 Duval if he is appropriate candidate for nasal pillow Impaired fasting glucose. - A1c of 5.8. Dietary restrictions, regimental exercise and weight loss advised. Subclinical hypothyroidism. - Check TSH and if needed we will start on low-dose levothyroxine. Vitamin D deficiency. - Take xrvw-tgf-lyxbynn vitamin D3 1000 international units daily Class 1 obesity. -Advised dietary restrictions and regimental exercise. Goal is to lose 5-6 lbs a month. Considering his history of obstructive sleep apnea. He will benefit from GLP/GIP. Prescription sent. Side effects explained. Screening blood work before next appointment. General health concerns discussed with patient. I 06/22/2025 Obstructive sleep apnea (ICD-10 - G47.33) Mr Evans is a 59-year-old gentleman with hypertension, hyperlipidemia and mild persistent asthma here for annual physical. Plan is as follows: Hypertension. - BP is well controlled. Cut back on sodium intake. Advised appropriate hydration, cardio exercises and weight loss. Continue on Losartan 50 MG and Chlorthalidone 25 MG once a day. - EKG is normal sinus rhythm at 87 bpm with no acute ST or T wave changes, no bundle branch blocks, normal intervals - hyperlipidemia. He is on atorvastatin 40 mg daily and he mentions that he takes it regularly but there is no improvement in his lipid panel. We will increase atorvastatin to 80 mg daily and repeat lipid panel GERD. -Stable on Pantoprazole 20 MG once a day. BPH. -Improved. Continue Tamsulosin 0.4 MG once a day. He could not tolerate digital rectal exam and he is given referral to urologist Asthma. -Stable on inhalersand he also takes Montelukast 10 MG once a day Inocencio follows up with Dr. Burch at [facility]. [place]. - Diagnosed with sleep apnea and he cannot tolerate CPAP. 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 Duval if he is appropriate candidate for nasal pillow Impaired fasting glucose. - A1c of 5.8. Dietary restrictions, regimental exercise and weight loss advised. Subclinical hypothyroidism. - Check TSH and if needed we will start on low-dose levothyroxine. Vitamin D deficiency. - Take tusm-sld-jamhkrc vitamin D3 1000 international units daily Class 1 obesity. -Advised dietary restrictions and regimental exercise. Goal is to lose 5-6 lbs a month. Considering his history of obstructive sleep apnea. He will benefit from GLP/GIP. Prescription sent. Side effects explained. Screening blood work before next appointment. General health concerns discussed with patient. I 06/22/2025 Other obesity due to excess calories (ICD-10 - E66.09) Mr Evans is a 59-year-old gentleman with hypertension, hyperlipidemia and mild persistent asthma here for annual physical. Plan is as follows: Hypertension. - BP is well controlled. Cut back on sodium intake. Advised appropriate hydration, cardio exercises and weight loss. Continue on Losartan 50 MG and Chlorthalidone 25 MG once a day. - EKG is normal sinus rhythm at [address]pm with no acute [address] or T wave changes, no bundle branch blocks, normal intervals - hyperlipidemia. He is on atorvastatin 40 mg daily and he mentions that he takes it regularly but there is no improvement in his lipid panel. We will increase atorvastatin to 80 mg daily and repeat lipid panel GERD. -Stable on Pantoprazole 20 MG once a day. BPH. -Improved. Continue Tamsulosin 0.4 MG once a day. He could not tolerate digital rectal exam and he is given referral to urologist Asthma. -Stable on inhalersand he also takes Montelukast 10 MG once a day Inocencio follows up with Dr. Burch at [facility]. [place]. - Diagnosed with sleep apnea and he cannot tolerate CPAP. 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 Duval if he is appropriate candidate for nasal pillow Impaired fasting glucose. - A1c of 5.8. Dietary restrictions, regimental exercise and weight loss advised. Subclinical hypothyroidism. - Check TSH and if needed we will start on low-dose levothyroxine. Vitamin D deficiency. - Take oevr-ket-azwcpwn vitamin D3 1000 international units daily Class 1 obesity. -Advised dietary restrictions and regimental exercise. Goal is to lose 5-6 lbs a month. Considering his history of obstructive sleep apnea. He will benefit from GLP/GIP. Prescription sent. Side effects explained. Screening blood work before next appointment. General health concerns discussed with patient. I 06/22/2025 Encounter for immunization (ICD-10 - Z23) Mr Evans is a 59-year-old gentleman with hypertension, hyperlipidemia and mild persistent asthma here for annual physical. Plan is as follows: Hypertension. - BP is well controlled. Cut back on sodium intake. Advised appropriate hydration, cardio exercises and weight loss. Continue on Losartan 50 MG and Chlorthalidone 25 MG once a day. - EKG is normal sinus rhythm at 87 bpm with no acute ST or T wave changes, no bundle branch blocks, normal intervals - hyperlipidemia. He is on atorvastatin 40 mg daily and he mentions that he takes it regularly but there is no improvement in his lipid panel. We will increase atorvastatin to 80 mg daily and repeat lipid panel GERD. -Stable on Pantoprazole 20 MG once a day. BPH. -Improved. Continue Tamsulosin 0.4 MG once a day. He could not tolerate digital rectal exam and he is given referral to urologist Asthma. -Stable on inhalersand he also takes Montelukast 10 MG once a day Inocencio follows up with Dr. Burch at [facility]. [place]. - Diagnosed with sleep apnea and he cannot tolerate CPAP. 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 Duval if he is appropriate candidate for nasal pillow Impaired fasting glucose. - A1c of 5.8. Dietary restrictions, regimental exercise and weight loss advised. Subclinical hypothyroidism. - Check TSH and if needed we will start on low-dose levothyroxine. Vitamin D deficiency. - Take krlq-bjg-bfpdhco vitamin D3 1000 international units daily Class 1 obesity. -Advised dietary restrictions and regimental exercise. Goal is to lose 5-6 lbs a month. Considering his history of obstructive sleep apnea. He will benefit from GLP/GIP. Prescription sent. Side effects explained. Screening blood work before next appointment. General health concerns discussed with patient. I Plan Of Treatment Pending Test Test Name Order Date Chest X-ray PA and lateral 11/14/2023 Lipid Panel-[id number] 02/10/2024 Lipid Panel-[id number] 06/25/2024 Comp. Metabolic Panel [id number] 2023 A1c w/GlycoMark(R) Reflex-[id number] TSH+Free T4 02/10/2024 Future Test Test Name Order Date TSH-[id number] 06/22/2025 Albumin/Creatinine Ratio,Urine-[id number] Lipid Panel-[id number] 06/22/2025 PSA (Serial Monitor)-[id number] 06/22/2025 25-Hydroxyvitamin D LCMS D2+[id number] Next Appt Details Provider Name:VENKAT DEMARCO , 08/03/2025 03:30:00 PM, [address] [place] [address], [phone], Insurance Providers Payer Name Payer Address Payer Phone Subscriber Number Group Number Insured Name Patient Relationship to Insured Coverage Start Date Coverage End Date [facility] [address] [place] [phone] [id number] Nathan Ryan Self - patient is the insured 4 Medical (General) History Medical History History ICD Code hyperlipidemia hypertension mild persistent asthma- see Dr B[place] [facility] [place] Seasonal Allergies- 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
== END 2025-07-20 15:06 | disposition home or self-care (01) ==
LOC: HO.HPS 14:37
PROVIDERS: PCP Internal Medicine; Visit Provider Hospitalist
DX: J45.40 Moderate persistent asthma, uncomplicated (principal); R91.1 Solitary pulmonary nodule; J30.9 Allergic rhinitis, unspecified; R06.09 Other forms of dyspnea; G47.33 Obstructive sleep apnea (adult) (pediatric)
CPT/HCPCS: 99214